=== PATIENT | male | born 1965 | race Two or more races ===

== ENCOUNTER 2019-10-31 11:26 | Outpatient (CLI) | payer MEDICAID, SELFPAY ==
--- NOTE | 2019-10-31 11:40 | XR_ITS ---
WS: [id number] THORACIC SPINE TECHNIQUE: AP and lateral views are performed. HISTORY: PAIN IN THORACIC SPINE COMPARISON: None available. Slight increase in thoracic kyphosis with endplate osteophytes. Pedicles are all identified. No osseo us destruction or fracture. Prior fusion hardware in the cervical spine. XR/XR thoracic spine 2V [id number] IMPRESSION: Mild thoracic spondylosis. No acute fracture.
== END 2019-10-31 11:27 | disposition home or self-care (01) ==
PROVIDERS: Family Provider Family Medicine; PCP Family Medicine; Visit Provider Nurse Practitioner Family
DX: M47.894 Other spondylosis, thoracic region (principal); M54.6 Pain in thoracic spine
CPT/HCPCS: 72070

== ENCOUNTER → 2019-11-21 08:50 | Outpatient (BNVA) | payer MEDICAID, SELFPAY | PROVIDERS: Family Provider Family Medicine; PCP Family Medicine; Visit Provider Social Worker | DX: F32.2 Major depressive disorder, single episode, severe without psychotic features (principal); F43.12 Post-traumatic stress disorder, chronic | CPT/HCPCS: 90834 ==

== ENCOUNTER → 2019-12-29 15:04 | Outpatient (BNVA) | payer MEDICAID, SELFPAY | PROVIDERS: Family Provider Family Medicine; PCP Family Medicine; Visit Provider Nurse Practitioner | DX: F41.1 Generalized anxiety disorder (principal); F32.2 Major depressive disorder, single episode, severe without psychotic features | CPT/HCPCS: 99213 ==

== ENCOUNTER → 2020-01-26 11:08 | Outpatient (BNVA) | payer MEDICAID, SELFPAY | PROVIDERS: Family Provider Family Medicine; PCP Family Medicine; Visit Provider Social Worker | DX: F43.12 Post-traumatic stress disorder, chronic (principal); F32.2 Major depressive disorder, single episode, severe without psychotic features | CPT/HCPCS: 90834 ==

== ENCOUNTER → 2020-02-09 08:29 | Outpatient (BNVA) | payer MEDICAID, SELFPAY | PROVIDERS: Family Provider Family Medicine; PCP Family Medicine; Visit Provider Social Worker | DX: F43.12 Post-traumatic stress disorder, chronic (principal); F32.2 Major depressive disorder, single episode, severe without psychotic features | CPT/HCPCS: 90832 ==

== ENCOUNTER 2020-03-20 11:24 | Emergency (ER) | payer MEDICAID, SELFPAY ==
[2020-03-20 11:43] VITALS: BP 162/91; PULSE 74; RESP 77; TEMP 36.8; O2SAT 96; BMI 30.4
--- NOTE | 2020-03-20 11:58 | XR_ITS ---
WS: [id number] XR chest 2V* [id number] REASON FOR EXAM: cough, fever FINDINGS: The heart and mediastinal interfaces are normal. The lung merchant are well aerated. No pneumonia, pleural effusion, pulmonary edema, or mass effect. There is mild scoliotic curve convex to the right. The hilum and apices are normal. There is postop changes in the lower anterior cervical spine with a plate in position. No osseous abnormalities. XR/XR chest 2V* [id number] IMPRESSION: Negative chest for active pathology.
--- NOTE | 2020-03-20 12:27 | ED_ITS ---
HPI - General Adult General: Chief complaint: General Medical Stated complaint: FEVER Time Seen by Provider: 03/20/20 11:52 Source: patient Mode of arrival: ambulatory Limitations: no limitations History of Present Illness: HPI narrative: 54-year-old male with a history of chronic pain syndrome presents to the emergency department of fever for the last 3 days. The fever has been as high as 101 degrees. He is also having increased myalgias and a mild cough. He has a bite on his back that he thinks may be a tick bite, the bite has been there for about a week and is getting more painful. He usually has lots of tick bites. He does travel weekly out of the area for work. MD complaint: fever Associated symptoms: Deny dyspnea, headache(s), nausea, rash, palpitations or vomiting Review of Systems General: Reports: 10 or more systems reviewed and unremarkable except in HPI and below Const: Reports: fever(s), chills and body aches Eyes: Denies: change in vision or blurry vision ENMT: Denies: throat pain, enlarged tonsils, odynophagia, hoarseness, mouth pain or swelling of lips/tongue Card: Denies: palpitations, irregular heart rhythm, edema or swelling of feet/ankles Resp: Reports: non-productive cough; Denies: dyspnea or productive cough GI: Denies: abdominal pain, nausea or vomiting : Denies: flank pain, dysuria, urinary frequency, urinary urgency or urinary hesitancy Musc: Reports: joint pain; Denies: neck pain, back pain or extremity swelling Skin/Breast: Denies: rash, pruritus or erythema Neuro: Denies: headache(s), numbness in extremities or weakness in extremities Endo: Denies: polyuria, polydipsia or tired all the time [facility] PFSH: Social History Smoking and tobacco status: never smoked Physical Exam Const: COMMON NORMALS: no acute distress, average body habitus, patient oriented x3, no limitations, healthy appearing, alert and well nourished HENMT: COMMON NORMALS: normocephalic, atraumatic and moist oral mucous membranes HEAD & SCALP: normocephalic and atraumatic Eye: COMMON NORMALS: Equal, round and reactive pupils present, EOMs intact bilaterally, conjunctivae normal and no scleral icterus CONJUNCTIVA: Yes conjunctivae normal PUPIL: Yes Equal, round and reactive pupils present Neck/C-Spine: COMMON NORMALS: full ROM, supple, no meningeal signs, no JVD and No carotid bruits Chest: COMMONS NORMALS: normal inspection of the chest and normal palpation of entire chest wall Resp: COMMON NORMALS: normal respiratory effort, No retractions, No use of accessory muscles, clear to auscultation bilaterally and percussion normal AUSCULTATION: clear to auscultation bilaterally PERCUSSION: percussion normal Cardio: COMMON NORMALS: no JVD, regular rate, regular rhythm, S1 normal heart sound present, S2 normal heart sound present, No gallops present (Cardio), No clicks present (Cardio), No murmurs present (Cardio), No rub (Cardio) and Peripheral pulses 2+ throughout RATE: regular rate RHYTHM: regular rhythm HEART SOUNDS: S1 normal heart sound present and S2 normal heart sound present PERIPHERAL PULSES: Peripheral pulses 2+ throughout GI: COMMON NORMALS: Normal to inspection, nondistended, normoactive bowel sounds present, Soft to palpation, non-tender, No hepatosplenomegaly present, no masses and no bruits PALPATION: Yes Soft to palpation and Yes No hepatosplenomegaly present : COMMON NORMALS: Yes no CVA tenderness BLADDER/KIDNEY EXAM: Yes no CVA tenderness Back/Pelvis: COMMON NORMALS: no CVA tenderness Extremity: COMMON NORMALS: normal to inspection, full ROM, capillary refill normal, no calf tenderness and no pedal edema Neuro: COMMON NORMALS: patient oriented x3 SENSORIUM/ORIENTATION: Yes alert MENINGEAL SIGNS: Yes no meningeal signs Skin: COMMON NORMALS: no rashes or lesions noted, no wounds, turgor normal, no jaundice, no petechiae and no mottling NARRATIVE SKIN EXAM: 5 cm area of erythema on his back, with a central area that appears to be a bite. The area is markedly tender, warm, with no fluctuance or drainage. GENERAL SKIN EXAM: no rashes or lesions noted and turgor normal Course Reevaluation(s): Reevaluation #1: Discussed his lab and imaging findings with him. Significant findings include elevated liver enzymes. Liver ultrasound unremarkable. Hepatitis panel negative. He possibly has a tickborne illness. We will treat him as such. We will also swab him for COVID-19. He voiced understanding and is in agreement with the plan. Time: 16:53 Vital Signs: Vital signs: Vital Signs Temperature 98.3 F 03/20/20 11:43 Pulse Rate 72 03/20/20 17:16 Respiratory Rate 16 03/20/20 17:16 Blood Pressure 135/97 03/20/20 17:16 Pulse Oximetry 96 03/20/20 17:16 MDM - General Adult MDM Narrative: Medical decision making narrative: 54-year-old male who presented with a fever, likely tick bites, and nonspecific symptoms of myalgias. Liver enzymes are elevated, hepatitis panel negative. He probably has a tick borne illness. He is also tested for COVID-19. He is discharged home on doxycycline. Medical Records: Attestation: I reviewed the patient's medical records. Lab Data: Attestation: I reviewed the patient's lab results. Labs: Lab Results 03/20/20 03/20/20 03/20/20 Range/Units 12:14 12:14 12:14 WBC 6.8 (4.0-10.0) 10^3/ uL RBC 5.03 (4.1-5.3) 10^6/u L Hgb 15.2 (11.7-16.6) g/dL Hct 44.9 (42.0-52.0) % MCV 89.3 (80-94) fL MCH 30.2 (28.0-34.0) pg MCHC 33.9 (30.0-36.0) g/dL RDW 13.9 (12.1-15.1) % Plt Count 224 (130-400) 10^3/c mm MPV 10.4 (7.4-10.4) fL Neut % (Auto) 77.0 % Lymph % (Auto) 10.3 % Bradley % (Auto) 6.3 % Eos % (Auto) 6.0 % Baso % (Auto) 0.1 % Neut # (Auto) 5.2 (1.8-7.7) 10^3/u L Lymph # (Auto) 0.7 L (0.8-4.8) 10^3/u L Bradley # (Auto) 0.4 (0.2-0.9) 10^3/u L Eos # (Auto) 0.4 (0.0-0.8) 10^3/u L Baso # (Auto) 0.0 (0.0-0.1) 10^3/u L Nucleated RBC % (a uto) 0 % Nucleated RBCs # 0.0 /100WBC Sodium 141 (136-145) mmol/L Potassium 4.4 (3.5-5.1) mmol/L Chloride 104 (98-107) mmol/L Carbon Dioxide 23 (22-29) mmol/L Anion Gap 18.4 (5-19) BUN 13 (6-20) mg/dL Creatinine 0.9 (0.7-1.2) mg/dL GFR Calculation 88.6 L (90-130) mL/min Glucose 117 H (65-115) mg/dL Calculated Osmolal ity 289 (285-295) mOsm/k g Lactate 1.3 (0.5-2.2) mmol/L Calcium 10.0 (8.5-10.5) mg/dL Total Bilirubin 0.6 (0.15-1.2) mg/dL AST 441 H (0-40) U/L ALT 712 H (0-41) U/L Alkaline Phosphata se 154 H (40-130) IU/L C-Reactive Protein 50.5 H (0.0-4.9) mg/L Total Protein 6.9 (6.6-8.7) g/dL Albumin 3.9 (3.5-5.2) g/dL Globulin 3.0 (1.3-4.6) g/dL Procalcitonin 0.29 (0-0.5) ng/mL Hepatitis A IgM Ab (Nonreactive) Hep Bs Antigen (Nonreactive) Hep Bs Antibody (0-8.5) Hep B Core Total A b (Nonreactive) Hepatitis C Antibo dy (Nonreactive) 03/20/20 Range/Units 12:14 WBC (4.0-10.0) 10^3/ uL RBC (4.1-5.3) 10^6/u L Hgb (11.7-16.6) g/dL Hct (42.0-52.0) % MCV (80-94) fL MCH (28.0-34.0) pg MCHC (30.0-36.0) g/dL RDW (12.1-15.1) % Plt Count (130-400) 10^3/c mm MPV (7.4-10.4) fL Neut % (Auto) % Lymph % (Auto) % Bradley % (Auto) % Eos % (Auto) % Baso % (Auto) % Neut # (Auto) (1.8-7.7) 10^3/u L Lymph # (Auto) (0.8-4.8) 10^3/u L Bradley # (Auto) (0.2-0.9) 10^3/u L Eos # (Auto) (0.0-0.8) 10^3/u L Baso # (Auto) (0.0-0.1) 10^3/u L Nucleated RBC % (a uto) % Nucleated RBCs # /100WBC Sodium (136-145) mmol/L Potassium (3.5-5.1) mmol/L Chloride (98-107) mmol/L Carbon Dioxide (22-29) mmol/L Anion Gap (5-19) BUN (6-20) mg/dL Creatinine (0.7-1.2) mg/dL GFR Calculation (90-130) mL/min Glucose (65-115) mg/dL Calculated Osmolal ity (285-295) mOsm/k g Lactate (0.5-2.2) mmol/L Calcium (8.5-10.5) mg/dL Total Bilirubin (0.15-1.2) mg/dL AST (0-40) U/L ALT (0-41) U/L Alkaline Phosphata se (40-130) IU/L C-Reactive Protein (0.0-4.9) mg/L Total Protein (6.6-8.7) g/dL Albumin (3.5-5.2) g/dL Globulin (1.3-4.6) g/dL Procalcitonin (0-0.5) ng/mL Hepatitis A IgM Ab Non-reactive (Nonreactive) Hep Bs Antigen Non-reactive (Nonreactive) Hep Bs Antibody 3.5 (0-8.5) Hep B Core Total A b Non-reactive (Nonreactive) Hepatitis C Antibo dy Non-reactive (Nonreactive) Imaging Data^: CXR: Radiologist's impression: [address] [place] [address] XRay Report Signed Patient: Wilner Hollingsworth #: [id number] : 1965Acct#:[id number] Age/Sex: 54 / MADM Date: 03/20/20 Loc: ERRoom/Bed: Attending Dr: Ordering Provider/Ordering MD: Funmilayo Saul MD, [facility] [place] of Service: 03/20/20 Procedure(s): XR chest 2V* [id number] Accession Number(s): [id number] Report Number: [id number] WS: [id number] XR chest 2V* [id number] REASON FOR EXAM: cough, fever FINDINGS: The heart and mediastinal interfaces are normal. The lung merchant are well aerated. No pneumonia, pleural effusion, pulmonary edema, or mass effect. There is mild scoliotic curve convex to the right. The hilum and apices are normal. There is postop changes in the lower anterior cervical spine with a plate in position. No osseous abnormalities. XR/XR chest 2V* [id number] IMPRESSION: Negative chest for active pathology. Dictated By:Roberto Rob DO Signed By:Roberto Rob DOSigned Date/Time:03/20/20 1248 DD/ 1247 US: Radiologist's impression: [address] [place] [address] Ultrasound Report Signed Patient: Wilner Hollingsworth #: [id number] : 1965Acct#:[id number] Age/Sex: 54 / MADM Date: 03/20/20 Loc: ERRoom/Bed: Attending Dr: Ordering Provider/Ordering MD: Funmilayo Saul MD, [facility] [place] Date of Service: 03/20/20 Procedure(s): US liver 10815 Accession Number(s): [id number] Report Number: [id number] WS: [id number] ABDOMINAL ULTRASOUND LIMITED REASON FOR VISIT: elevated liver enzymes TECHNIQUE: Grayscale and Doppler ultrasound examination of the abdomen. FINDINGS: Pancreas: Normal Abdominal aorta and IVC: Normal Liver: Liver measures 17.2 cm in length. Coarse reflective pattern throughout the liver. Hepatopedal portal circulation. Gallbladder: Gallbladder wall thickness measures 0.2 mm. No stones. Right kidney: Right kidney measures 13.2 cm x 5.5 cm x 5.2 cm. Right kidney cortex measures 1.6 cm. A prominent cyst in the right kidney measured 4.68 x 4.32 x 4.64 cm. US/US liver [id number] IMPRESSION: Fatty infiltration of the liver Benign cyst of the right kidney. Dictated By:Roberto Rob DO Signed By:Roberto Rob DOSigned Date/Time:03/20/20 1450 DD/ 1447 Discharge Plan Discharge Patient Disposition: Home, Self-Care Clinical Impression: At high risk for tick borne illness Condition: Stable Prescriptions: New doxycycline hyclate 100 mg capsule 100 mg PO BID 7 Days Qty: 14 RF: 0 Continued gabapentin 300 mg capsule 300 mg PO TID RF: 0 tramadol 50 mg tablet 100 mg PO TID PRNRF: 0 enalapril maleate 5 mg tablet 5 mg PO .QHS RF: 0 hydroxyzine HCl 25 mg tablet 25 mg PO BID PRNRF: 0 duloxetine [Cymbalta] 60 mg capsule,delayed release(DR/EC) 120 mg PO DAILY Qty: 60 RF: 2 trazodone 50 mg tablet 50 mg PO .COMPLEX Qty: 60 RF: 2 Discharge Orders: Discharge Order (Routine); Ordered 03/20/20 Ordered By: Funmilayo Saul Patient Instructions: Tick Bite (ED) Activity Restrictions/Additional Instructions: Return for any new or worsening symptoms. Follow up with your primary care provider within one week You will be contacted with the result of the tick borne illness and also the COVID-19 tests. Discharge Date/Time: 03/20/20 17:16 Coding Level of Care Code ED Certified Ophthalmic Technologist for Kevin Fwmary Exam Comprehensive
[2020-03-20 12:39] LABS: Basophils % 0.1 %; Eosinophils # 0.4 10^3/uL (0.0-0.8); Hematocrit 44.9 % (42.0-52.0); Hemoglobin 15.2 g/dL (11.7-16.6); Lactate (Lactic Acid level) 1.3 mmol/L (0.5-2.2); Lymphocytes # 0.7 10^3/uL (0.8-4.8); Lymphocytes % 10.3 %; Mean Corpuscular HGB Conc 33.9 g/dL (30.0-36.0); Mean Corpuscular Hemoglobin 30.2 pg (28.0-34.0); Mean Corpuscular Volume 89.3 fL (80-94); Mean Platelet Volume 10.4 fL (7.4-10.4); Monocytes # 0.4 10^3/uL (0.2-0.9); Monocytes % 6.3 %; Neutrophils # 5.2 10^3/uL (1.8-7.7); Nucleated Red Blood Cells % 0 %; Platelet Count 224 10^3/cmm (130-400); Red Blood Count 5.03 10^6/uL (4.1-5.3); Red Cell Distribution Width 13.9 % (12.1-15.1); White Blood Count 6.8 10^3/uL (4.0-10.0)
[2020-03-20 12:51] LABS: Procalcitonin 0.29 ng/mL (0-0.5)
[2020-03-20 12:56] VITALS: BP 166/83; PULSE 74; RESP 16; O2SAT 96
[2020-03-20 13:06] LABS: Albumin Level 3.9 g/dL (3.5-5.2); Alkaline Phosphatase 154 IU/L (40-130); Anion Gap 18.4 (5-19); Aspartate Amino Transferase 441 U/L (0-40); Blood Urea Nitrogen 13 mg/dL (6-20); C Reactive Protein 50.5 mg/L (0.0-4.9); Carbon Dioxide 23 mmol/L (22-29); Chloride 104 mmol/L (98-107); Glomerular Filtration Rate 88.6 mL/min (90-130); Glucose 117 mg/dL (65-115); Osmolality Calculated 289 mOsm/kg (285-295); Potassium 4.4 mmol/L (3.5-5.1); Sodium 141 mmol/L (136-145); Total Bilirubin 0.6 mg/dL (0.15-1.2); Total Protein 6.9 g/dL (6.6-8.7)
[2020-03-20 13:17] LABS: Alanine Aminotransferase 712 U/L (0-41)
--- NOTE | 2020-03-20 13:45 | US_ITS ---
WS: [id number] ABDOMINAL ULTRASOUND LIMITED REASON FOR VISIT: elevated liver enzymes TECHNIQUE: Grayscale and Doppler ultrasound examination of the abdomen. FINDINGS: Pancreas: Normal Abdominal aorta and IVC: Normal Liver: Liver measures 17.2 cm in length. Coarse reflective pattern throughout the liver. Hepatopedal portal circulation. Gallbladder: Gallbladder wall thickness measures 0.2 mm. No stones. Right kidney: Right kidney measures 13.2 cm x 5.5 cm x 5.2 cm. Right kidney cortex measures 1.6 cm. A prominent cyst in the right kidney measured 4.68 x 4.32 x 4.64 cm. US/US liver [id number] IMPRESSION: Fatty infiltration of the liver Benign cyst of the right kidney.
[2020-03-20 14:36] VITALS: BP 145/110; PULSE 61; RESP 18; O2SAT 95
[2020-03-20 14:46] LABS: Hepatitis A Antibody IgM Non-Reactive (Nonreactive); Hepatitis B Core AB, Total Non-Reactive (Nonreactive); Hepatitis B Surface AB 3.5 (0-8.5); Hepatitis B Surface Antigen Non-Reactive (Nonreactive); Hepatitis C Virus Antibody Non-Reactive (Nonreactive)
[2020-03-20 15:08] VITALS: BP 158/107; PULSE 73; RESP 16; O2SAT 98
[2020-03-20 17:16] VITALS: BP 135/97; PULSE 72; RESP 16; O2SAT 96
[2020-03-21 15:40] LABS: Lyme AB Screen <0.90 index
[2020-03-22 10:22] LABS: Quest SARS-CoV-2 RNA NOT DETECTED (NOT DETECTED)
[2020-03-23 17:15] LABS: RMSF IGG NOT DETECTED; RMSF IGM NOT DETECTED
[2020-03-23 22:01] LABS: E. Chaffeensis AB IGG <1:64; E. Chaffeensis AB IGM <1:20
== END 2020-03-20 17:16 | disposition home or self-care (01) ==
PROVIDERS: Emergency Provider Family Medicine
DX: R50.9 Fever, unspecified (principal)
CPT/HCPCS: 12345; 36415; 71046; 76705; 80053; 83605; 84145; 85025; 86140; 86705; 86706; 86709; 86803; 87340; 87635; 99282; 99283

== ENCOUNTER → 2020-03-27 08:16 | Outpatient (BNVA) | payer MEDICAID, SELFPAY | PROVIDERS: Visit Provider Social Worker | DX: F43.12 Post-traumatic stress disorder, chronic (principal); F32.2 Major depressive disorder, single episode, severe without psychotic features; F41.1 Generalized anxiety disorder | CPT/HCPCS: 90834 ==

== ENCOUNTER → 2020-04-24 07:44 | Outpatient (BNVA) | payer MEDICAID, SELFPAY | PROVIDERS: Visit Provider Nurse Practitioner | DX: F41.1 Generalized anxiety disorder (principal); F32.0 Major depressive disorder, single episode, mild; F90.0 Attention-deficit hyperactivity disorder, predominantly inattentive type | CPT/HCPCS: 99214 ==

== ENCOUNTER → 2020-06-08 09:20 | Outpatient (BNVA) | payer MEDICAID, SELFPAY | PROVIDERS: Visit Provider Nurse Practitioner | DX: F32.0 Major depressive disorder, single episode, mild (principal); F41.1 Generalized anxiety disorder | CPT/HCPCS: 99213 ==

== ENCOUNTER 2020-07-13 15:26 | Outpatient (CLI) | payer MEDICAID, SELFPAY ==
--- NOTE | 2020-07-13 | USCV_ITS ---
Wilenr Hollingsworth Age: 55 Gender: M : 1965 Exam Date: 07/13/2020 15:42 Ordering Phys: Lisa Samaniego NP Technologist: Henrietta Sun Exam Location: [facility] [place] Indication: CHEST PAIN BP: / HR: 67 Rhythm: Sinus Technical Quality: Adequate MEASUREMENTS (Male / Female) Normal Values 2D ECHO LV Diastolic Diameter PLAX 3.9 cm 4.2 - 5.9 / 3.9 - 5.3 cm LV Systolic Diameter PLAX 2.6 cm LV Chamber Size 4.1 cm IVS Diastolic Thickness 1.2 cm 0.6 - 1.0 / 0.6 - 0.9 cm IVS Systolic Thickness 1.6 cm LVPW Diastolic Thickness 1.6 cm 0.6 - 1.0 / 0.6 - 0.9 cm LVPW Systolic Thickness 1.6 cm RV Chamber Size 2.6 cm LVOT Diameter 2.1 cm LV Ejection Fraction 2D Teich 60.4 % LV Ejection Fraction MOD 2C 71.3 % LV Ejection Fraction 2C AL 72.1 % LA Diameter 3.9 cm LA Width 3.0 cm LA Height 4.5 cm RA Width 2.8 cm RA Height 4.2 cm Aorta at Sinotubular Diameter 3.4 cm M-MODE LV Diastolic Diameter MM 4.7 cm 4.2 - 5.9 / 3.9 - 5.3 cm LV Systolic Diameter MM 3.1 cm LV Ejection Fraction MM Teich 64.8 % IVS Diastolic Thickness MM 1.0 cm 0.6 - 1.0 / 0.6 - 0.9 cm IVS Systolic Thickness MM 1.2 cm LVPW Diastolic Thickness MM 1.2 cm 0.6 - 1.0 / 0.6 - 0.9 cm LVPW Systolic Thickness MM 3.0 cm RV Diastolic Diameter MM 0.9 cm Aortic Annulus Diameter 3.9 cm LA Ao Ratio MM 1.0 MV E Point Septal Separation 0.1 cm DOPPLER AV Peak Velocity 163.0 cm/s LVOT Peak Velocity 110.0 cm/s AV Area Cont Eq vti 2.5 cm squared AV Area Cont Eq pk 2.3 cm squared MV Area PHT 4.9 cm squared Mitral E to A Ratio 1.0 MV E' Velocity 10.0 cm/s Mitral E to MV E' Ratio 7.9 Mitral E to LV E' Lateral Ratio 6.6 Mitral E to LV E' Septal Ratio 10.1 TR Peak Velocity 170.5 cm/s TR Peak Gradient 11.6 mmHg TR Mean Velocity 108.6 cm/s TR Mean Gradient 6.1 mmHg TR Velocity Time Integral 37.6 cm TV Peak E Velocity 69.0 cm/s Right Atrial Pressure 3.0 mmHg Pulmonary Artery Systolic Pressu 14.6 mmHg PV Peak Velocity 52.0 cm/s RV Acceleration Time 0.2 s RV Ejection Time 0.3 s RV AcT/ET 0.6 FINDINGS Left Ventricle Normal left ventricular size and systolic function, EF 70 %. No regional wall motion abnormalities. Grade I/IV diastolic dysfunction (abnormal relaxation filling pattern), normal to mildly elevated filling pressures. Right Ventricle The right ventricle is normal in size and function. Right Atrium The right atrium is normal in size. Left Atrium The left atrium is normal in size. Mitral Valve No gross abnormalities noted Aortic Valve No gross abnormalities noted Tricuspid Valve Trace tricuspid valve regurgitation. Pulmonic Valve No gross abnormalities noted Pericardium Normal pericardium without effusion. Aorta Normal ascending aorta dimension. CONCLUSIONS Normal left ventricular size and systolic function, EF 70 %. No regional wall motion abnormalities. Grade I/IV diastolic dysfunction (abnormal relaxation filling pattern), normal to mildly elevated filling pressures. Trace tricuspid valve regurgitation. There is no pericardial effusion. There are no intracardiac masses. Pulmonary artery peak systolic pressure was within normal limits No previous study is available for comparison. Dr Zelalem Sorto MD FAC (Electronically Signed) Final Date: 14 July 2020 09:10 S
== END 2020-07-13 15:27 | disposition home or self-care (01) ==
LOC: US 15:27
PROVIDERS: PCP Nurse Practitioner Family; Visit Provider Nurse Practitioner Family
DX: R07.9 Chest pain, unspecified (principal)
CPT/HCPCS: 93306

== ENCOUNTER → 2020-07-25 11:28 | Outpatient (BNVA) | payer MEDICAID, SELFPAY | PROVIDERS: PCP Nurse Practitioner Family; Visit Provider Surgery | DX: Z11.59 Encounter for screening for other viral diseases (principal) | CPT/HCPCS: 87635 ==

== ENCOUNTER 2020-07-30 06:22 | Day surgery (SDC) | payer MEDICAID, SELFPAY ==
[2020-07-24 13:10] VITALS: BMI 28.8
[2020-07-30 06:39] VITALS: BP 108/85; PULSE 75; RESP 18; TEMP 36.6; O2SAT 96
[2020-07-30] MEDS: sodium chloride 0.9% 1,000 ML 30 ML IV (06:50)
--- NOTE | 2020-07-30 06:54 | ANES.PREANE2 ---
Pre-Anesthetic Assessment Pre-Anesthetic Assessment: Height/Weight: Height 1.73 m Weight 86.183 kg Temp Pulse Resp BP Pulse Ox 97.8 F 75 18 108/85 96 07/30/20 06:39 07/30/20 06:39 07/30/20 06:39 07/30/20 06:39 07/30/20 06:39 Preop Diagnosis: Dysphagia Proposed Procedure: Operation Date: 07/30/20 07:30 Proposed Procedures p EGD Dilation W/ Balloon 48345 K21.9(Not Applicable) - Kenyon Bro MD Last intake: Intake Last Liquid Date 07/30/20 Last Liquid Time 18:00 Last Solid Date 07/29/20 Last Solid Time 19:00 Social: Social History: No alcohol and No tobacco Exam: Pre-Anes Outpt Exam: alert, oriented x 3, clear to auscultation bilaterally and regular rate & rhythm Airway: Submandibular: WNL Cervical ROM: Other (VERY LIMITED ACDF) MP: 2 History/ROS: No significant history except as noted Pulmonary: Pulmonary: None reported CV/HEM: CV/HEM: HTN : : None reported GI: GI: GERD and PUD Musc/skel: Musc/skel: Lower Back Pain and OA/DJD (cervical fusion C4-C7 DJD) Neuropsych: Neuropsych: Anxiety Anesthetic Plan: ASA status: 2 Anesthesia: Anesthesia Evaluation and MAC Other: PREFERS NO BLOOD PRODUCTS Risk of > 500 ml blood loss (7ml/kg in children): No Meds/Allergies Current Medications: Current Medications Generic Name Dose Route Start Last Admin Trade Name Freq PRN Reason Stop Dose Admin Sodium Chloride 1,000 mls @ 30 ml s/hr 07/30/20 06:45 07/30/20 06:50 Sodium Chloride 0.9% IV 30 mls/hr .Q24H JANEL Administration PFSH Anesthesia PFSH: Medical History Chronic GERD Generalized anxiety disorder Major depressive disorder, single episode, mild Surgical History H/O colonoscopy 2020 H/O neck surgery History of prostate surgery Family History Father Cancer liver Family/Other Cancer uncle-lung Other CAD (coronary artery disease) Denies family history of Anesthesia complication Bleeding disorder Social History Smoking and tobacco status: never smoked Alcohol intake: never Household members: spouse Marital status: Current occupational status: unemployed History of recent travel: No Data Anesthesia Cardiac Studies: No Data to Display
--- NOTE | 2020-07-30 07:03 | W.PM.OPSUD ---
Surgery/Procedure H&P Update DATE OF PROCEDURE: July 30, 2020 DATE H&P PERFORMED: 07/20/20 H&P UPDATE INFORMATION: I have reviewed H&P completed within last 30 days, I have examined patient prior to procedure and No changes to prior documentation PREOP DIAGNOSIS: Dysphagia PLANNED PROCEDURE: Operation Date: 07/30/20 07:30 Proposed Procedures p EGD Dilation W/ Balloon 40480 K21.9(Not Applicable) - Kenyon Bro MD
[2020-07-30 07:49] VITALS: BP 120/92; PULSE 67; RESP 16; TEMP 36.2; O2SAT 96
[2020-07-30 08:03] VITALS: BP 132/95; PULSE 72; RESP 18; O2SAT 97
--- NOTE | 2020-07-30 08:30 | ANE.PACU2 ---
Inpatient post-anesthesia follow up: Airway intact: Yes Vital signs: Temperature 97.2 F Pulse Rate 72 Respiratory Rate 18 Blood Pressure 132/95 Pulse Oximetry 97 Oxygen Delivery Me thod Room Air Oxygen Flow Rate 3 Fraction of Inspir ed Oxygen Hydration adequate: Yes Nausea and vomiting: No Pain level: 1 Mental status: Baseline
== END 2020-07-30 08:29 | disposition home or self-care (01) ==
PROVIDERS: PCP Nurse Practitioner Family; Visit Provider Surgery
DX: R13.10 Dysphagia, unspecified (principal); F41.9 Anxiety disorder, unspecified; F32.9 Major depressive disorder, single episode, unspecified; K21.9 Gastro-esophageal reflux disease without esophagitis; I10 Essential (primary) hypertension; Z87.11 Personal history of peptic ulcer disease; M19.90 Unspecified osteoarthritis, unspecified site
CPT/HCPCS: 12345; 43235; J2704; J7030

== ENCOUNTER → 2020-08-29 07:55 | Outpatient (BNVA) | payer MEDICAID, SELFPAY | PROVIDERS: PCP Nurse Practitioner Family; Visit Provider Nurse Practitioner | DX: F32.0 Major depressive disorder, single episode, mild (principal); F41.1 Generalized anxiety disorder | CPT/HCPCS: 99214 ==

== ENCOUNTER → 2020-10-03 08:27 | Outpatient (BNVA) | payer MEDICAID, SELFPAY | PROVIDERS: PCP Nurse Practitioner Family; Visit Provider Counselor Professional | DX: F43.12 Post-traumatic stress disorder, chronic (principal); F32.2 Major depressive disorder, single episode, severe without psychotic features; F41.1 Generalized anxiety disorder | CPT/HCPCS: 90834 ==

== ENCOUNTER → 2020-10-26 09:14 | Outpatient (BNVA) | payer MEDICAID, SELFPAY | PROVIDERS: PCP Nurse Practitioner Family; Visit Provider Counselor Professional | DX: F43.12 Post-traumatic stress disorder, chronic (principal); F33.2 Major depressive disorder, recurrent severe without psychotic features; F41.1 Generalized anxiety disorder | CPT/HCPCS: 90834 ==

== ENCOUNTER → 2020-10-29 07:42 | Outpatient (BNVA) | payer MEDICAID, SELFPAY | PROVIDERS: PCP Nurse Practitioner Family; Visit Provider Nurse Practitioner | DX: F32.0 Major depressive disorder, single episode, mild (principal); F41.1 Generalized anxiety disorder | CPT/HCPCS: 99214 ==

== ENCOUNTER → 2020-11-14 08:36 | Outpatient (BNVA) | payer MEDICAID, SELFPAY | PROVIDERS: PCP Nurse Practitioner Family; Visit Provider Counselor Professional | DX: F43.12 Post-traumatic stress disorder, chronic (principal); F32.2 Major depressive disorder, single episode, severe without psychotic features; F41.1 Generalized anxiety disorder | CPT/HCPCS: 90834 ==

== ENCOUNTER → 2020-12-13 08:13 | Outpatient (BNVA) | payer MEDICAID, SELFPAY | PROVIDERS: PCP Nurse Practitioner Family; Visit Provider Counselor Professional | DX: F43.12 Post-traumatic stress disorder, chronic (principal); F32.2 Major depressive disorder, single episode, severe without psychotic features; F41.1 Generalized anxiety disorder; F40.11 Social phobia, generalized | CPT/HCPCS: 90834 ==

== ENCOUNTER → 2020-12-27 07:55 | Outpatient (BNVA) | payer MEDICAID, SELFPAY | PROVIDERS: PCP Nurse Practitioner Family; Visit Provider Counselor Professional | DX: F32.2 Major depressive disorder, single episode, severe without psychotic features (principal); F41.1 Generalized anxiety disorder; F40.10 Social phobia, unspecified; F43.12 Post-traumatic stress disorder, chronic | CPT/HCPCS: 90834 ==

== ENCOUNTER → 2021-02-07 09:41 | Outpatient (BNVA) | payer MEDICAID, SELFPAY | PROVIDERS: PCP Nurse Practitioner Family; Visit Provider Counselor Professional | DX: F43.12 Post-traumatic stress disorder, chronic (principal); F41.1 Generalized anxiety disorder; F40.10 Social phobia, unspecified | CPT/HCPCS: 90834 ==

== ENCOUNTER → 2021-03-28 08:02 | Outpatient (BNVA) | payer MEDICAID, SELFPAY | PROVIDERS: PCP Nurse Practitioner Family; Visit Provider Counselor Professional | DX: F43.12 Post-traumatic stress disorder, chronic (principal); F41.1 Generalized anxiety disorder; F40.10 Social phobia, unspecified | CPT/HCPCS: 90834 ==

== ENCOUNTER → 2021-04-05 14:37 | Outpatient (BNVA) | payer MEDICAID, SELFPAY | PROVIDERS: PCP Nurse Practitioner Family; Visit Provider Counselor Professional | DX: F43.12 Post-traumatic stress disorder, chronic (principal); F41.1 Generalized anxiety disorder; F40.10 Social phobia, unspecified | CPT/HCPCS: 90834 ==

== ENCOUNTER → 2021-05-03 14:07 | Outpatient (BNVA) | payer MEDICAID, SELFPAY | PROVIDERS: PCP Nurse Practitioner Family; Visit Provider Counselor Professional | DX: F43.12 Post-traumatic stress disorder, chronic (principal); F41.1 Generalized anxiety disorder; F40.10 Social phobia, unspecified | CPT/HCPCS: 90834 ==

== ENCOUNTER → 2021-06-19 08:43 | Outpatient (BNVA) | payer MEDICAID, SELFPAY | PROVIDERS: PCP Nurse Practitioner Family; Visit Provider Nurse Practitioner | DX: F32.0 Major depressive disorder, single episode, mild (principal); F41.1 Generalized anxiety disorder | CPT/HCPCS: 99214 ==

== ENCOUNTER → 2021-08-02 09:37 | Outpatient (BNVA) | payer MEDICAID, SELFPAY | PROVIDERS: PCP Nurse Practitioner Family; Visit Provider Counselor Professional | DX: F43.12 Post-traumatic stress disorder, chronic (principal); F41.1 Generalized anxiety disorder; F40.10 Social phobia, unspecified; F60.3 Borderline personality disorder | CPT/HCPCS: 90834 ==

== ENCOUNTER 2021-08-15 | Outpatient (CLI) | payer MEDICAID, SELFPAY | END 2021-08-15 00:01 | disposition home or self-care (01) | LOC: RAD 04-15 08:59 | PROVIDERS: PCP Nurse Practitioner Family; Visit Provider Nurse Practitioner Family | DX: F43.12 Post-traumatic stress disorder, chronic (principal); F41.1 Generalized anxiety disorder; F40.10 Social phobia, unspecified | CPT/HCPCS: 90834 ==

== ENCOUNTER → 2021-08-29 09:38 | Outpatient (BNVA) | payer MEDICAID, SELFPAY | PROVIDERS: PCP Nurse Practitioner Family; Visit Provider Counselor Professional | DX: F43.12 Post-traumatic stress disorder, chronic (principal); F41.1 Generalized anxiety disorder; F40.10 Social phobia, unspecified | CPT/HCPCS: 90834 ==

== ENCOUNTER → 2021-09-06 09:57 | Outpatient (BNVA) | payer MEDICAID, SELFPAY | PROVIDERS: PCP Nurse Practitioner Family; Visit Provider Counselor Professional | DX: F43.12 Post-traumatic stress disorder, chronic (principal); F41.1 Generalized anxiety disorder; F40.10 Social phobia, unspecified | CPT/HCPCS: 90834 ==

== ENCOUNTER → 2021-09-18 09:19 | Outpatient (BNVA) | payer MEDICAID, SELFPAY | PROVIDERS: PCP Nurse Practitioner Family; Visit Provider Nurse Practitioner | DX: F41.1 Generalized anxiety disorder (principal); F32.0 Major depressive disorder, single episode, mild | CPT/HCPCS: 99214 ==

== ENCOUNTER → 2021-10-24 08:30 | Outpatient (BNVA) | payer MEDICAID, SELFPAY | PROVIDERS: PCP Nurse Practitioner Family; Visit Provider Counselor Professional | DX: F43.12 Post-traumatic stress disorder, chronic (principal); F41.1 Generalized anxiety disorder; F40.10 Social phobia, unspecified | CPT/HCPCS: 90834 ==

== ENCOUNTER 2021-10-31 16:39 | Emergency (ER) | payer MEDICAID, SELFPAY ==
[2021-10-31 16:47] VITALS: BP 132/86; PULSE 79; RESP 16; TEMP 36.7; O2SAT 98; BMI 30.4
--- NOTE | 2021-10-31 17:11 | W.ED.BACK ---
HPI - Back Pain/Injury General: Chief Complaint: Back Pain/Injury Stated Complaint: severe back pains prison down Time Seen by Provider: 10/31/21 17:10 Source: patient Mode of arrival: ambulatory Limitations: no limitations History of Present Illness: HPI Narrative: Patient is a 56-year-old male who presents to ED today with a complaint of back pain that began yesterday. Patient tells me earlier that day he had been lifting heavy loads of trash and states he was getting down from his truck when he felt something shift in his back and pain began gradually following that. He does state he has a history of back pains but this feels slightly different. He is reporting midline back pain to his lower thoracic/upper lumbar region. He does not have any flank pain. No urinary symptoms. He states pain seems to be worse with certain movements and positions. Denies radicular symptoms into lower extremity. MD elicited complaint: back pain Pertinent past history: prior back pain Onset (ago): hour(s) Timing: constant Severity: severe Pain scale (0-10): 10 Quality: sharp Location: lumbar spine and thoracic spine Radiation: none Exacerbating factors: movement, walking, coughing/sneezing and lifting Relieving factors: none Associated symptoms: Reports no associated symptoms; Deny abdominal pain, chills, dysuria, fatigue, fever(s), hematuria, nausea, urinary urgency or vomiting Review of Systems Const: Denies: fever(s), chills, body aches, fatigue or malaise Card: Denies: chest pain Resp: Denies: dyspnea GI: Denies: abdominal pain, nausea or vomiting : Denies: flank pain, difficulty urinating, dysuria, urinary urgency or hematuria Musc: Reports: back pain; Denies: neck pain, extremity pain, joint pain or joint swelling Skin/Breast: Denies: rash Neuro: Denies: headache(s), numbness in extremities, weakness in extremities, sensory changes or dizziness PFS ED PFSH: Medical History (Updated 10/31/21 @ 18:13 by JESUS ALBERTO Bruce) Chronic GERD Generalized anxiety disorder Major depressive disorder, single episode, mild Psychiatric care Surgical History (Updated 07/30/20 @ 07:52 by Kenyon Bro MD) H/O colonoscopy 2020 H/O esophagogastroduodenoscopy (07/30/20) H/O neck surgery History of prostate surgery Family History Father Cancer liver Family/Other Cancer uncle-lung Other CAD (coronary artery disease) Denies family history of Anesthesia complication Bleeding disorder Social History Smoking and tobacco status: never smoked Alcohol intake: never Household members: spouse Marital status: Current occupational status: unemployed History of recent travel: No Physical Exam Const: COMMON NORMALS: patient oriented x3, no limitations and alert GENERAL APPEARANCE: cooperative and in distress (appears uncomfortable secondary to pain) NUTRITIONAL APPEARANCE: overweight ORIENTATION/CONSCIOUSNESS: Yes awake, Yes oriented to person, Yes oriented to place and Yes oriented to time HENMT: COMMON NORMALS: normocephalic and atraumatic HEAD & SCALP: normocephalic and atraumatic Neck/C-Spine: COMMON NORMALS: full ROM and no lymphadenopathy GENERAL: Yes normal visual inspection CERVICAL SPINE: Yes cervical ROM normal and No Cervical spine tenderness Chest: COMMONS NORMALS: normal inspection of the chest and normal palpation of entire chest wall Resp: COMMON NORMALS: normal respiratory effort and clear to auscultation bilaterally AUSCULTATION: clear to auscultation bilaterally Cardio: COMMON NORMALS: regular rate and regular rhythm RATE: regular rate RHYTHM: regular rhythm GI: COMMON NORMALS: Normal to inspection, nondistended, normoactive bowel sounds present, Soft to palpation, non-tender, No hepatosplenomegaly present and no masses PALPATION: Yes Soft to palpation and Yes No hepatosplenomegaly present : COMMON NORMALS: Yes no CVA tenderness BLADDER/KIDNEY EXAM: Yes no CVA tenderness Back/Pelvis: COMMON NORMALS: no CVA tenderness BACK IMAGE (MALE): 1. TTP; palpation reproduces pts pain Extremity: COMMON NORMALS: normal to inspection and full ROM GENERAL: Yes normal exam except as noted Neuro: COMMON NORMALS: patient oriented x3, moves all extremities, no focal motor deficits, no sensory deficits noted and gait normal SENSORIUM/ORIENTATION: Yes alert, Yes oriented to person, Yes oriented to place and Yes oriented to time Skin: COMMON NORMALS: no rashes or lesions noted GENERAL SKIN EXAM: no rashes or lesions noted Course Vital Signs: Vital signs: Vital Signs Temperature 98.0 F 10/31/21 16:47 Pulse Rate 79 10/31/21 16:47 Respiratory Rate 18 10/31/21 17:26 Blood Pressure 132/86 10/31/21 16:47 Pulse Oximetry 100 10/31/21 17:26 MDM - Back Pain/Injury MDM Narrative: Medical decision making narrative: Patient's history is consistent with musculoskeletal muscle pathology. Pain was reproducible on palpation of his upper lumbar/lower thoracic spine. He has no neurological complaints. No pain into chest/abdomen. Pain down from a 10/10 to a 3/10 with IM medications here. I don't feel emergent imaging is necessary at this time. Recommend he follow up with PCP in 3-5 days if pain persists. Strict return to ED precautions verbally given to patient/. Discharge Plan Discharge Patient Disposition: Home Clinical Impression: Musculoskeletal back pain Condition: Stable Prescriptions: New hydrocodone-acetaminophen 5-325 mg tablet 1 tab PO Q4H PRN (Reason: pain) Qty: 15 RF: 0 methylprednisolone [Medrol (Alexis)] 4 mg tablets,dose pack See Rx Instructions .ROUTE .COMPLEX Qty: 21 RF: 0 cyclobenzaprine 10 mg tablet 10 mg PO TID Qty: 14 RF: 0 ibuprofen 800 mg tablet 800 mg PO Q8H PRN (Reason: pain) Qty: 20 RF: 0 No Action gabapentin 300 mg capsule 300 mg PO TID RF: 0 tramadol 50 mg tablet 100 mg PO TID PRN (Reason: Pain) RF: 0 enalapril maleate 5 mg tablet 5 mg PO .QHS RF: 0 duloxetine [Cymbalta] 60 mg capsule,delayed release(DR/EC) 120 mg PO DAILY Qty: 60 RF: 2 hydroxyzine HCl 25 mg tablet 25 mg PO QID PRN (Reason: anxiety) Qty: 120 RF: 2 trazodone 50 mg tablet 50 mg PO .COMPLEX Qty: 60 RF: 2 Protonix 40 mg tablet,delayed release (DR/EC) 40 mg PO DAILY 42 Days RF: 3 Discharge Orders: Discharge ED (Routine); Ordered 10/31/21 Ordered By: Robyn Fernández Referrals: Lisa Samaniego, [employer] INBOARD/OUTBOARD [Primary Care Provider] - Patient Instructions: Opioid Safety Activity Restrictions/Additional Instructions: [facility] is committed to fighting the nationwide opiate epidemic. We are providing ALL patients with information regarding opiate safety. If you received opiate pain medication during your stay or if you received a prescription for opiate pain medication-please review this handout. If not, you may disregard. Thank you. As we discussed please follow-up with his primary care provider soon as possible for further evaluation of back pain does not improve. You need to return to the emergency department for severe back pain, uncontrollable pain at home, severe pain that radiates into your chest or abdomen, lightheadedness/dizziness, or any other concerns you may have. I hope you begin to feel better soon. 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
[2021-10-31 17:26] VITALS: RESP 18; O2SAT 100
[2021-10-31] MEDS: morphine 4 mg/mL SDV 1 mL IM (17:26)
[2021-10-31] MEDS: orphenadrine 30 mg/mL Inj 2 mL 60 MG IM (17:31)
[2021-10-31] MEDS: ketorolac 60 mg/2 mL INJ IM (17:31)
[2021-10-31 18:33] LABS: Add Urine Microscopic? NO; Charge for UA Resulting for Rev
[2021-10-31 18:45] LABS: Bilirubin Urine Neg (Negative); Blood Urine Neg (Negative); Glucose Urine UA Norm (Normal); Ketones Urine Negative (Negative); Leukocyte Esterase Urine Negative (Negative); Nitrate Urine Negative (Negative); Protein Urine Neg (Negative); Specific Gravity, Urine 1.025 (1.005-1.030); Urine Appearance Clear (CLEAR); Urine Color Yellow (Yellow); Urobilinogen Urine Norm (Negative); pH Urine 5 (5-7)
[2021-10-31] MEDS: HYDROcodone-acetaminophen 7.5-325 mg Tablet 2 TAB PO (18:46)
== END 2021-10-31 18:57 | disposition home or self-care (01) ==
PROVIDERS: Emergency Provider Physician Assistant; PCP Nurse Practitioner Family
DX: M54.89 Other dorsalgia (principal)
CPT/HCPCS: 81003; 96372; 99283; J1885; J2270; J2360

== ENCOUNTER → 2021-12-20 08:46 | Outpatient (BNVA) | payer MEDICAID, SELFPAY | PROVIDERS: PCP Nurse Practitioner Family; Visit Provider Counselor Professional | DX: F43.12 Post-traumatic stress disorder, chronic (principal); F41.1 Generalized anxiety disorder; F40.10 Social phobia, unspecified | CPT/HCPCS: 90837; 90834 ==

== ENCOUNTER → 2021-12-25 11:12 | Outpatient (BNVA) | payer MEDICAID, SELFPAY | PROVIDERS: PCP Nurse Practitioner Family; Visit Provider Nurse Practitioner | DX: F32.0 Major depressive disorder, single episode, mild (principal); F41.1 Generalized anxiety disorder | CPT/HCPCS: 99214 ==

== ENCOUNTER → 2022-01-24 11:56 | Outpatient (BNVA) | payer MEDICAID, SELFPAY | PROVIDERS: PCP Nurse Practitioner Family; Visit Provider Counselor Professional | DX: F43.12 Post-traumatic stress disorder, chronic (principal); F41.1 Generalized anxiety disorder; F40.10 Social phobia, unspecified | CPT/HCPCS: 90834 ==

== ENCOUNTER → 2022-01-28 09:49 | Outpatient (BNVA) | payer MEDICAID, SELFPAY | PROVIDERS: PCP Nurse Practitioner Family; Visit Provider Nurse Practitioner | DX: F32.0 Major depressive disorder, single episode, mild (principal); F41.1 Generalized anxiety disorder | CPT/HCPCS: 99214 ==

== ENCOUNTER → 2022-03-13 09:51 | Outpatient (BNVA) | payer MEDICAID, SELFPAY | PROVIDERS: PCP Nurse Practitioner Family; Visit Provider Counselor Professional | DX: F40.10 Social phobia, unspecified (principal); F41.1 Generalized anxiety disorder; F43.12 Post-traumatic stress disorder, chronic | CPT/HCPCS: 90832; 90834 ==

== ENCOUNTER → 2022-04-10 12:50 | Outpatient (BNVA) | payer MEDICAID, SELFPAY | PROVIDERS: PCP Nurse Practitioner Family; Visit Provider Counselor Professional | DX: F43.12 Post-traumatic stress disorder, chronic (principal); F41.1 Generalized anxiety disorder; F40.10 Social phobia, unspecified | CPT/HCPCS: 90834 ==

== ENCOUNTER → 2022-04-17 13:29 | Outpatient (BNVA) | payer MEDICAID, SELFPAY | PROVIDERS: PCP Nurse Practitioner Family; Visit Provider Counselor Professional | DX: F40.10 Social phobia, unspecified (principal); F41.1 Generalized anxiety disorder; F43.12 Post-traumatic stress disorder, chronic | CPT/HCPCS: 90834 ==

== ENCOUNTER 2022-07-31 11:52 | Outpatient (CLI) | payer MEDICAID, SELFPAY ==
--- NOTE | 2022-07-31 | CT_ITS ---
WS: [id number] CT ABDOMEN AND PELVIS WITH CONTRAST HISTORY: MESENTERIC LYMPHADENITIS TECHNIQUE: Imaging performed of the abdomen and pelvis with IV contrast. Single phase imaging of the abdomen. Coronal and sagittal reformats are submitted. All CT scans at [facility] use at [address] one of these dose optimization techniques: automated exposure control; mA and/or kV adjustment per patient size (includes targeted exams where dose is matched to clinical indication); or iterative re construction. IV CONTRAST: Omnipaque 350; 95 mL IV. Oral contrast: No DLP: 1269.53 mGy.cm COMPARISON: 04/19/2019 Lower thorax: Lung bases are clear. Heart is normal size. No hiatal hernia. Liver/biliary system: Focal fatty steatosis along the falciform ligament. No mass or bile duct dilata tion. Normal portal vein. Gallbladder: Mildly contracted gallbladder. Probably due to a nonfasting state. Pancreas: Normal size pancreas and pancreatic duct. No adjacent inflammation. Spleen: Normal size spleen. No mass or infarct. Adrenal glands: Normal. Right kidney: Normal size kidney. Cystic mass measuring 5.2 x 4.4 cm in the upper pole. No solid comp onent. There is an additional too small to characterize hypodensity in the lower pole. Left kidney: Normal. Aorta: Normal size aorta. No aortic dissection. No aneurysm. Mild ectasia with a maximum diameter of 2.9 cm. Celiac axis is normal. Proximal SMA is intact. Approximately 2 cm from the origin of the SMA there is mild enlargement. There is a very thin lucency in the lumen of the mid SMA which extends ove r several centimeters. Suspicious for an SMA dissection. This was not present on the prior study. Lymphadenopathy: None. There is minimal soft tissue stranding in the central mesentery similar to radhames or studies. Free fluid: None. GI tract: No ischemic changes present within the GI tract. No obstruction. Mild diffuse constipation. There are a few scattered diverticula in the distal colon. Abdominal wall: Fat containing umbilical hernia. Pelvis: Prostate gland calcifications. No free fluid. Urinary bladder is negative. Bones: L5 RIGHT pars defect. CT/CT abdomen pelvis w con* [id number] IMPRESSION: 1. 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 No aortic disse ction. Both lumens are enhancing and there are no ischemic changes in the GI tr act. 2. Very mild mesenteric misting with no adenopathy. 3. Simple RIGHT renal cyst. Notified ADRIANA Pacheco at 07/31/2022 1:34 PM.
[2022-07-31] MEDS: iohexol 350 mg/mL 100 mL Btl IV (12:04)
== END 2022-07-31 11:53 | disposition home or self-care (01) ==
LOC: RAD 11:53
PROVIDERS: PCP Nurse Practitioner Family; Visit Provider Nurse Practitioner Family
DX: I88.0 Nonspecific mesenteric lymphadenitis (principal); N28.1 Cyst of kidney, acquired
CPT/HCPCS: 74177

== ENCOUNTER → 2023-07-06 07:58 | Outpatient (BNVA) | payer MEDICAID, SELFPAY | PROVIDERS: PCP Nurse Practitioner Family; Visit Provider Otolaryngology | DX: H61.22 Impacted cerumen, left ear (principal); H93.13 Tinnitus, bilateral | CPT/HCPCS: 69210; 99202 ==

== ENCOUNTER → 2023-08-20 08:37 | Outpatient (BNVA) | payer MEDICAID, SELFPAY | PROVIDERS: PCP Nurse Practitioner Family; Referring Provider Nurse Practitioner Family; Visit Provider Surgery | DX: K21.9 Gastro-esophageal reflux disease without esophagitis (principal); R10.9 Unspecified abdominal pain | CPT/HCPCS: 99204; 99214 ==

== ENCOUNTER 2023-08-28 06:46 | Day surgery (SDC) | payer MEDICAID, SELFPAY ==
[2023-08-28 06:59] VITALS: BP 145/87; PULSE 60; RESP 18; TEMP 36.3; O2SAT 96; BMI 30.4
[2023-08-28] MEDS: sodium chloride 0.9% 1,000 ML 30 ML IV (07:07)
--- NOTE | 2023-08-28 07:17 | ANES.PREANE2 ---
Pre-Anesthetic Assessment Height/Weight: Height 1.73 m Weight 90.718 kg Temp Pulse Resp BP Pulse Ox O2 Del Method 97.4 F L 60 18 145/87 96 Room Air 08/28/23 06:59 08/28/23 06:59 08/28/23 06:59 08/28/23 06:59 08/28/23 06:59 08/28/23 06:59 Preop Diagnosis: Abdominal pain Operation Date: 08/28/23 08:15 Proposed Procedures p EGD [id number],R10.9(Not Applicable) - Lukas Lind DO Familial anesthetic complications: None Was Beta Julianne taken within 24 hours: N/A Was Clonidine taken within 24 hours: N/A Last intake: Intake Last Liquid Date 08/27/23 Last Liquid Time 20:00 Last Solid Date 08/27/23 Last Solid Time 20:00 Social No alcohol and No tobacco Exam alert, oriented x 3, clear to auscultation bilaterally and regular rate & rhythm Airway Submandibular: within normal limits Cervical ROM: Other (ACDF, limited ROM) Mallampati: Class II Dentition: full History/ROS No significant history except as noted and No significant complaints Pulmonary Exertional Dyspnea CV/HEM Hypertension None reported Hepatic None reported GI Gastroesophageal Reflux Disease Metabolic Hyperlipidemia Musc/skel Lower Back Pain and Osteoarthritis/DJD Neuropsych Anxiety, Depression and Neuropathy Anesthetic Plan ASA status: 2 Anesthesia: Anesthesia Evaluation, General and MAC Risk of > 500 ml blood loss (7ml/kg in children): No Medications/Allergies Home Medications Medication Instructions Recorded Confirmed Last Taken Type gabapentin 300 mg capsule 300 mg PO TID 12/06/19 08/28/23 08/27/23 History tramadol 50 mg tablet 100 mg PO TID PRN Pain 12/06/19 08/28/23 08/26/23 History ibuprofen 800 mg tablet 800 mg PO Q8H PRN pain #20 tabs 10/31/21 08/28/23 Unknown Rx duloxetine 60 mg capsule,delayed 120 mg PO DAILY #60 caps 12/25/21 08/27/23 08/27/23 Rx release (Cymbalta) enalapril maleate 5 mg tablet 5 mg PO TID 12/25/21 08/27/23 08/27/23 History hydroxyzine HCl 25 mg tablet 25 mg PO QID PRN anxiety #120 tabs 12/25/21 08/28/23 08/27/23 Rx buspirone 10 mg tablet 10 mg PO BID #60 tabs 01/28/22 08/27/23 08/27/23 Rx pantoprazole 40 mg tablet,delayed 40 mg PO BID PRN abdominal pain 6 08/20/23 08/27/23 08/27/23 Rx release (Protonix) weeks #28 tabs trazodone 50 mg tablet 50 mg PO .COMPLEX PRN Sleep 08/27/23 08/28/23 Unknown History Allergies Allergy/AdvReac Type Severity Reaction Status Date / Time No Known Allergies Allergy Verified 08/28/23 06:58 Current Medications Generic Name Dose Route Start Last Admin Trade Name Freq PRN Reason Stop Dose Admin Sodium Chloride 1,000 mls @ 30 mls/hr 08/28/23 07:00 08/28/23 07:07 Sodium Chloride 0.9% IV 08/29/23 06:59 30 mls/hr .Q24H JANEL Administration PFSH Anesthesia Medical History Chronic GERD Generalized anxiety disorder Major depressive disorder, single episode, mild Prostate calculus Surgical History H/O colonoscopy 2019 H/O esophagogastroduodenoscopy (07/30/20) H/O neck surgery History of prostate surgery Family History Father Cancer liver Family/Other Cancer uncle-lung Other CAD (coronary artery disease) Denies family history of Anesthesia complication Bleeding disorder Social History Smoking and tobacco/nicotine status: never used tobacco/nicotine Alcohol intake: never Substance/Drug Use: never Household members: spouse Marital status: Current occupational status: unemployed Data Anesthesia Cardiac Studies: Echocardiogram Ultrasound 07/13/20
--- NOTE | 2023-08-28 07:59 | W.PM.OPSUD ---
Surgery/Procedure H&P Update DATE OF PROCEDURE: August 28, 2023 DATE H&P PERFORMED: 08/20/23 H&P UPDATE INFORMATION: I have reviewed H&P completed within last 30 days, I have examined patient prior to procedure and No changes to prior documentation PREOP DIAGNOSIS: Abdominal pain PLANNED PROCEDURE: Operation Date: 08/28/23 08:15 Proposed Procedures p EGD 11091,R10.9(Not Applicable) - Lukas Lind DO
[2023-08-28 08:12] VITALS: BP 102/79; PULSE 56; RESP 14; TEMP 36.3; O2SAT 92
[2023-08-28 08:20] VITALS: BP 110/76; PULSE 62; RESP 16; O2SAT 96
[2023-08-28 08:30] VITALS: BP 121/83; PULSE 58; RESP 18; O2SAT 95
--- NOTE | 2023-08-28 12:44 | ANE.PACU2 ---
Inpatient post-anesthesia follow up: Airway intact: Yes Vital signs: Temperature 97.4 F Pulse Rate 58 Respiratory Rate 18 Blood Pressure 121/83 Pulse Oximetry 95 Oxygen Delivery Me thod Room Air Oxygen Flow Rate Fraction of Inspir ed Oxygen Hydration adequate: Yes Nausea and vomiting: No Pain level: 2 Mental status: Baseline
== END 2023-08-28 08:44 | disposition home or self-care (01) ==
PROVIDERS: PCP Nurse Practitioner Family; Visit Provider Surgery
PROC: 0DJ08ZZ Inspection of Upper Intestinal Tract, Via Natural or Artificial Opening Endoscopic (ICD-10-PCS; CPT 43235; principal; 2023-08-28 08:15)
DX: R10.9 Unspecified abdominal pain (principal); K29.80 Duodenitis without bleeding; I10 Essential (primary) hypertension; K21.9 Gastro-esophageal reflux disease without esophagitis; E78.5 Hyperlipidemia, unspecified; F41.1 Generalized anxiety disorder
CPT/HCPCS: 43239; 88305; J2704; J7030

== ENCOUNTER 2023-08-28 10:13 | Outpatient (CLI) | payer MEDICAID, SELFPAY ==
--- NOTE | 2023-08-28 10:21 | MM_ITS ---
WS: [id number] Bilateral diagnostic 3D tomosynthesis digital mammogram, 08/28/2023 Clinical Data: RT BR LUMP Comparison: None. Findings: The left breast is normal. The right breast shows anterior fibroglandular tissue which is typical of gynecomastia. No spiculated masses nor clustered calcifications are seen. There are no secondary sign s of carcinoma. Impression: 1. Right breast gynecomastia. 2. Negative left breast. 3. Recommend right breast ultrasound. MM/[place] [id number] BIRADS: 2-Benign FOLLOW UP: See Report The CAD battery checker was used.
--- NOTE | 2023-08-28 10:21 | US_ITS ---
WS: [id number] Right breast ultrasound, 08/28/2023 Clinical Data: RT BR LUMP Comparison: None. Findings: The ultrasound was performed at the central portion of the right breast adjacent to the nipple. There were nonspecific signals which are consistent with gynecomastia. There were no cysts or masses. Impression: 1. Right breast gynecomastia. 2. Recommend clinical follow-up. US/US breast RT limited* [id number] BIRADS: 2-Benign FOLLOW UP: See Report
== END 2023-08-28 10:14 | disposition home or self-care (01) ==
LOC: RAD 10:14
PROVIDERS: PCP Nurse Practitioner Family; Visit Provider Nurse Practitioner Family
DX: N62 Hypertrophy of breast (principal); N63.10 Unspecified lump in the right breast, unspecified quadrant
CPT/HCPCS: 76642; 77062; G0279

== ENCOUNTER 2023-09-09 15:12 | Outpatient (CLI) | payer MEDICAID, SELFPAY ==
--- NOTE | 2023-09-09 15:20 | MR_ITS ---
WS: [id number] MRI HEAD WITHOUT CONTRAST TECHNIQUE: Sagittal T1, T2 axial, T2 axial FLAIR, axial and coronal T1 images, axial susceptibility w eighted imaging, axial diffusion weighted images, and coronal T2 images were obtained. CLINICAL INFORMATION: DIZZINESS/MUSCLE WEAKNESS. MS? COMPARISON: None. FINDINGS: No evidence of restricted diffusion to suggest acute ischemia. Ventricular system and basilar cistern s are patent. Mild patchy supratentorial white matter changes mainly in the frontal lobes. Mild paren chymal volume loss. Normal corpus callosum. Normal posterior fossa. Normal vascular flow voids at the skull base. No extra-axial fluid collection s. No evidence of mass or mass effect. Paranasal sinuses and mastoid air cells are well aerated. No h emosiderin on the susceptibility weighted images. Normal posterior nasopharynx. IMPRESSION: 1. No evidence of restricted diffusion to suggest acute ischemia. 2. Patchy supratentorial white matter changes mainly in the frontal lobes nonspecific in a patient t his age but can be seen with hypertension, diabetes, and migraine headaches. Less likely demyelinatin g disease. Normal corpus callosum. 3. No suspicious infratentorial lesions. 4. Mild parenchymal volume loss. 5. No hemosiderin on the susceptibly weighted images.
== END 2023-09-09 15:13 | disposition home or self-care (01) ==
LOC: RAD 15:13
PROVIDERS: PCP Nurse Practitioner Family; Visit Provider Nurse Practitioner Family
DX: R42 Dizziness and giddiness (principal); M62.81 Muscle weakness (generalized)
CPT/HCPCS: 70551

== ENCOUNTER → 2023-09-15 09:27 | Outpatient (BNVA) | payer MEDICAID, SELFPAY | PROVIDERS: PCP Nurse Practitioner Family; Visit Provider Surgery | DX: K55.1 Chronic vascular disorders of intestine (principal) | CPT/HCPCS: 99214 ==

== ENCOUNTER 2023-10-13 15:12 | Emergency (ER) | payer MEDICAID, SELFPAY ==
[2023-10-13] VITALS (7 sets, daily range): BP systolic 106–130; BP diastolic 70–86; PULSE 66–73; RESP 15–21; TEMP 36.6; O2SAT 92–98; BMI 30.4
--- NOTE | 2023-10-13 15:22 | CTR_ITS ---
PROCEDURE INFORMATION: Exam: CT Abdomen And Pelvis With Contrast Exam date and time: 10/13/2023 4:53 PM Age: 58 years old Clinical indication: Abdominal pain; Generalized; Additional info: Abd pain TECHNIQUE: Imaging protocol: Computed tomography of the abdomen and pelvis with contrast. Sagittal and coronal reformatted images were created and reviewed. Radiation optimization: All CT scans at this facility use at least one of these dose optimization techniques: automated exposure control; mA and/or kV adjustment per patient size (includes targeted exams where dose is matched to clinical indication); or iterative reconstruction. Contrast material: OMNI 350; Contrast volume: 100 ml; Contrast route: INTRAVENOUS (IV); REPORTING DATA: Count of CT and Cardiac NM exams in prior 12 months: This patient has received 0 known CTs and 0 known cardiac nuclear medicine studies in the 12 months prior to the current study. COMPARISON: CT abdomen pelvis w con* [id number] 07/31/2022 12:15 PM RADIATION DOSE METRICS: Total DLP (mGy-cm): 919 FINDINGS: Lungs: Dependent atelectasis in the visualized lungs. Pleural spaces: No pleural effusion. Heart: Visualized cardiac chambers are unremarkable. Liver: The liver is unremarkable. Gallbladder and bile ducts: The gallbladder is unremarkable. No biliary ductal dilatation. Pancreas: The pancreas is unremarkable. No pancreatic ductal dilatation. Spleen: The spleen is unremarkable. Adrenal glands: The right and left adrenal glands are unremarkable. Kidneys and ureters: Stable subcentimeter hypodense foci in both right and left kidneys that are too small to characterize, however likely represent small cysts. Simple cyst in the right kidney is stable in size measuring 6.1 cm. Stomach and bowel: Ingested food in the visualized distal esophagus. Numerous diverticula in the sigmoid colon. No evidence for diverticulitis. Fluid within the small bowel without evidence of bowel wall thickening. Appendix: Appendix not definitely visualized. No inflammatory changes in the pericecal region however. Intraperitoneal space: No free intraperitoneal air. No ascites. No loculated fluid collections to suggest an abscess. Vasculature: Minimal atherosclerotic changes in the visualized arteries. No evidence for aortic aneurysm or aortic dissection. Hepatic veins, portal veins, splenic vein, and SMV are patent. Lymph nodes: No lymphadenopathy. Urinary bladder: Diffuse, mild bladder wall thickening . Reproductive: Stable nonspecific parenchymal calcifications in the prostate gland. Bones/joints: Degenerative changes in the spine, sacroiliac joints, and hips. Soft tissues: No acute abnormality in the extra-abdominal soft tissues. CT/CT abdomen pelvis w con* [id number] IMPRESSION: 1. Fluid within the small bowel without evidence of bowel wall thickening. This may reflect viral gastroenteritis in the appropriate clinical situation. 2. Ingested food in the visualized distal esophagus. This could be due to retained esophageal contents from poor esophageal motility versus gastroesophageal reflux. Recommend clinical correlation. Upper GI examination or upper endoscopy may be obtained for further evaluation as clinically indicated. 3. Diffuse, mild bladder wall thickening . In the correct clinical setting, this may suggest cystitis. Recommend correlation with laboratory findings. Alternatively, this may be secondary to chronic outlet obstruction. 4. Sigmoid diverticulosis. No evidence for diverticulitis. 5. Incidental/nonacute findings are listed in the report.
--- NOTE | 2023-10-13 15:27 | W.ED.ABDPA2 ---
HPI - Abdominal Pain General: Chief Complaint: Abdominal Pain Stated Complaint: abd pain, nausea Time Seen by Provider: 10/13/23 15:14 Source: patient Mode of arrival: ambulatory Limitations: no limitations History of Present Illness: 58-year-old male states he down right lower quadrant pain over the last 2 days states its gotten worse today states pain sharp in nature rates it a 7 out of 10 denies any fevers. Denies any dysuria denies any vomiting or diarrhea. Denies any radiation of his pain. Associated Symptoms: Denies chills, diarrhea, fever(s), nausea and vomiting Review of Systems Const: Denies: fever(s), chills, body aches or change in appetite ENMT: Denies: throat pain or dental pain Card: Denies: chest pain Resp: Denies: dyspnea GI: Reports: abdominal pain; Denies: nausea, vomiting or diarrhea Musc: Denies: neck pain or back pain Skin/Breast: Denies: rash Neuro: Denies: headache(s) PFSH ED PFSH: Medical History Prostate calculus Chronic GERD Major depressive disorder, single episode, mild Generalized anxiety disorder Surgical History H/O esophagogastroduodenoscopy (07/30/20) History of prostate surgery H/O colonoscopy 2020 H/O neck surgery Family History Father Cancer liver Family/Other Cancer uncle-lung Other CAD (coronary artery disease) Denies family history of Anesthesia complication Bleeding disorder Social History Smoking and tobacco/nicotine status: never used tobacco/nicotine Alcohol intake: never Substance/Drug Use: never Household members: spouse Marital status: Current occupational status: unemployed Physical Exam Const: COMMON NORMALS: no acute distress, patient oriented x3 and healthy appearing HENMT: COMMON NORMALS: normocephalic and atraumatic HEAD & SCALP: normocephalic and atraumatic Neck/C-Spine: COMMON NORMALS: full ROM and supple Chest: COMMONS NORMALS: normal inspection of the chest and normal palpation of entire chest wall Resp: COMMON NORMALS: normal respiratory effort, No retractions, No use of accessory muscles and clear to auscultation bilaterally AUSCULTATION: clear to auscultation bilaterally Cardio: COMMON NORMALS: regular rate, regular rhythm and No murmurs present (Cardio) RATE: regular rate RHYTHM: regular rhythm GI: COMMON NORMALS: Normal to inspection, nondistended, normoactive bowel sounds present, Soft to palpation and no masses PALPATION: Yes Soft to palpation and Yes Tenderness to palpation present (GI) Details: RLQ Extremity: COMMON NORMALS: normal to inspection and full ROM Neuro: COMMON NORMALS: patient oriented x3, moves all extremities and no focal motor deficits Psych: COMMON NORMALS: mental status grossly normal, Normal thought process present and cooperative THOUGHT PROCESS: Normal thought process present Skin: COMMON NORMALS: no rashes or lesions noted and no wounds GENERAL SKIN EXAM: no rashes or lesions noted Course Vital Signs: Vital signs: Vital Signs Temperature 97.8 F 10/13/23 15:18 Pulse Rate 73 10/13/23 17:12 Respiratory Rate 19 H 10/13/23 17:12 Blood Pressure 116/79 10/13/23 17:12 Pulse Oximetry 92 10/13/23 17:12 Oxygen Delivery Me thod Room Air 10/13/23 17:12 MDM - Abdominal Pain Medical Decision Making Patient presents here with abdominal pain blood work here is normal no acute findings on CT no signs of appendicitis. He feels improved here we will prescribe him Reglan for home he is to follow-up his PCP and return if worsening he understands agrees to plan. Medical Records I reviewed the patient's medical records. Lab Data I reviewed the patient's lab results. 10/13/23 15:39 10/13/23 15:39 Labs/Radiology: Radiology Impressions Abdomen/Pelvis CT 10/13/23 15:22 IMPRESSION: 1. Fluid within the small bowel without evidence of bowel wall thickening. This may reflect viral gastroenteritis in the appropriate clinical situation. 2. Ingested food in the visualized distal esophagus. This could be due to retained esophageal contents from poor esophageal motility versus gastroesophageal reflux. Recommend clinical correlation. Upper GI examination or upper endoscopy may be obtained for further evaluation as clinically indicated. 3. Diffuse, mild bladder wall thickening . In the correct clinical setting, this may suggest cystitis. Recommend correlation with laboratory findings. Alternatively, this may be secondary to chronic outlet obstruction. 4. Sigmoid diverticulosis. No evidence for diverticulitis. 5. Incidental/nonacute findings are listed in the report. Laboratory Results WBC 8.41 10^3/uL (3.29-11.43) 10/13/23 15:39 RBC 5.43 10^6/uL (3.85-5.65) 10/13/23 15:39 Hgb 16.40 g/dL (11.27-16.99) 10/13/23 15:39 Hct 47.6 % (37-53) 10/13/23 15:39 MCV 87.7 fl (82-101) 10/13/23 15:39 MCH 30.2 pg (27-33) 10/13/23 15:39 MCHC 34.5 g/dL (30-55) 10/13/23 15:39 RDW 13.1 % (12.1-15.1) 10/13/23 15:39 Plt Count 263 10^3/cmm (157-399) 10/13/23 15:39 MPV 10.1 fL (7.4-10.4) 10/13/23 15:39 Neut % (Auto) 54.6 % 10/13/23 15:39 Lymph % (Auto) 34.7 % 10/13/23 15:39 [place] % (Auto) 7.0 % 10/13/23 15:39 Eos % (Auto) 2.9 % 10/13/23 15:39 Baso % (Auto) 0.6 % 10/13/23 15:39 Neut # (Auto) 4.59 10^3/uL (1.8-7.7) 10/13/23 15:39 Lymph # (Auto) 2.9 10^3/uL (0.8-4.8) 10/13/23 15:39 [place] # (Auto) 0.6 10^3/uL (0.2-0.9) 10/13/23 15:39 Eos # (Auto) 0.2 10^3/uL (0.0-0.8) 10/13/23 15:39 Baso # (Auto) 0.1 10^3/uL (0.0-0.1) 10/13/23 15:39 Nucleated RBC % (auto) 0 % 10/13/23 15:39 Nucleated RBCs # 0.0 /100WBC 10/13/23 15:39 Sodium 138 mmol/L (136-145) 10/13/23 15:39 Potassium 4.1 mmol/L (3.5-5.1) 10/13/23 15:39 Chloride 102 mmol/L (98-107) 10/13/23 15:39 Carbon Dioxide 26 mmol/L (22-29) 10/13/23 15:39 Anion Gap 14.1 (5-19) 10/13/23 15:39 BUN 16 mg/dL (6-20) 10/13/23 15:39 Creatinine 1.0 mg/dL (0.7-1.2) 10/13/23 15:39 GFR Calculation 77.3 mL/min (90-130) L 10/13/23 15:39 Glucose 135 mg/dL (65-115) H 10/13/23 15:39 Calculated Osmolality 289 mOsm/kg (285-295) 10/13/23 15:39 Calcium 10.0 mg/dL (8.5-10.5) 10/13/23 15:39 Total Bilirubin 0.2 mg/dL (0.15-1.2) 10/13/23 15:39 AST 22 U/L (0-40) 10/13/23 15:39 ALT 52 U/L (0-41) H 10/13/23 15:39 Alkaline Phosphatase 106 U/L (40-130) 10/13/23 15:39 Total Protein 7.4 g/dL (6.6-8.7) 10/13/23 15:39 Albumin 4.6 g/dL (3.5-5.2) 10/13/23 15:39 Globulin 2.8 g/dL (1.3-4.6) 10/13/23 15:39 Lipase 30 U/L (13-60) 10/13/23 15:39 Urine Color Yellow (Yellow) 10/13/23 16:34 Urine Appearance Clear (CLEAR) 10/13/23 16:34 Urine pH 6 (5-7) 10/13/23 16:34 Ur Specific [place] 1.020 (1.005-1.030) 10/13/23 16:34 Urine Protein Neg (Negative) 10/13/23 16:34 Urine Glucose (UA) Norm (Normal) 10/13/23 16:34 Urine Ketones Negative (Negative) 10/13/23 16:34 Urine Blood Neg (Negative) 10/13/23 16:34 Urine Nitrate Negative (Negative) 10/13/23 16:34 Urine Bilirubin Neg (Negative) 10/13/23 16:34 Urine Urobilinogen Norm mg/dL (Negative) 10/13/23 16:34 Ur Leukocyte Esterase Negative (Negative) 10/13/23 16:34 All radiology interpretation(s) finalized by discharge Discharge Plan Discharge Patient Disposition: Home Clinical Impression: Abdominal pain Qualifiers: Abdominal location: generalized Qualified Code(s): R10.84 - Generalized abdominal pain Condition: Stable Prescriptions: New Reglan 10 mg tablet 10 mg PO Q6H PRN (Reason: nausea and vomiting) Qty: 20 0RF No Action duloxetine [Cymbalta] 60 mg capsule,delayed release(DR/EC) 120 mg PO DAILY Qty: 60 2RF pantoprazole [Protonix] 40 mg tablet,delayed release (DR/EC) 40 mg PO BID PRN (Reason: abdominal pain) 42 Days Qty: 28 0RF atorvastatin 40 mg tablet 40 mg PO QPM carvedilol 25 mg tablet 25 mg PO BID nifedipine 90 mg tablet extended release 90 mg PO DAILY hydralazine 50 mg tablet 50 mg PO QID Eliquis 5 mg tablet 5 mg PO BID Discharge Orders: Discharge ED (Routine); Ordered 10/13/23 Ordered By: Lisandra Castillo Referrals: Rolon,Michelle, SYSTEMS ARCHITECTURE ANALYST [Primary Care Provider] - 1-3 days Discharge Diet: Advance as tolerated Discharge Activity: Resume usual activity Patient Instructions: Abdominal Pain (ED) Coding Level of Care Code ED Nba Player for Derrickg Elbert
[2023-10-13] MEDS: morphine 4 mg/mL SDV 1 mL IVP (15:44)
[2023-10-13] MEDS: ondansetron 2 mg/ML SDV 2 mL 4 MG IVP (15:44)
[2023-10-13 16:04] LABS: Basophils # 0.1 10^3/uL (0.0-0.1); Basophils % 0.6 %; Eosinophils # 0.2 10^3/uL (0.0-0.8); Eosinophils % 2.9 %; Hematocrit 47.6 % (37-53); Lymphocytes # 2.9 10^3/uL (0.8-4.8); Lymphocytes % 34.7 %; Mean Corpuscular HGB Conc 34.5 g/dL (30-55); Mean Corpuscular Hemoglobin 30.2 pg (27-33); Mean Corpuscular Volume 87.7 fl (82-101); Mean Platelet Volume 10.1 fL (7.4-10.4); Monocytes # 0.6 10^3/uL (0.2-0.9); Neutrophils # 4.59 10^3/uL (1.8-7.7); Neutrophils % 54.6 %; Nucleated Red Blood Cells % 0 %; Platelet Count 263 10^3/cmm (157-399); Red Blood Count 5.43 10^6/uL (3.85-5.65); Red Cell Distribution Width 13.1 % (12.1-15.1); White Blood Count 8.41 10^3/uL (3.29-11.43)
[2023-10-13 16:15] LABS: Alanine Aminotransferase 52 U/L (0-41); Albumin Level 4.6 g/dL (3.5-5.2); Alkaline Phosphatase 106 U/L (40-130); Anion Gap 14.1 (5-19); Aspartate Amino Transferase 22 U/L (0-40); Blood Urea Nitrogen 16 mg/dL (6-20); Carbon Dioxide 26 mmol/L (22-29); Chloride 102 mmol/L (98-107); Globulin 2.8 g/dL (1.3-4.6); Glomerular Filtration Rate 77.3 mL/min (90-130); Glucose 135 mg/dL (65-115); Lipase 30 U/L (13-60); Osmolality Calculated 289 mOsm/kg (285-295); Potassium 4.1 mmol/L (3.5-5.1); Sodium 138 mmol/L (136-145); Total Bilirubin 0.2 mg/dL (0.15-1.2); Total Protein 7.4 g/dL (6.6-8.7)
[2023-10-13] MEDS: iohexol 350 mg/mL 500 mL Btl (per mL) IV (17:01)
[2023-10-13 17:22] LABS: Add Urine Microscopic? NO; Charge for UA Resulting for Rev
[2023-10-13 17:27] LABS: Bilirubin Urine Neg (Negative); Blood Urine Neg (Negative); Glucose Urine UA Norm (Normal); Ketones Urine Negative (Negative); Leukocyte Esterase Urine Negative (Negative); Nitrate Urine Negative (Negative); Protein Urine Neg (Negative); Urine Appearance Clear (CLEAR); Urine Color Yellow (Yellow); Urobilinogen Urine Norm (Negative); pH Urine 6 (5-7)
== END 2023-10-13 17:50 | disposition home or self-care (01) ==
PROVIDERS: Emergency Provider Emergency Medicine; PCP Nurse Practitioner Family
DX: R10.84 Generalized abdominal pain (principal); Z79.01 Long term (current) use of anticoagulants; K57.30 Diverticulosis of large intestine without perforation or abscess without bleeding
CPT/HCPCS: 74177; 80053; 81003; 83690; 85025; 96374; 96375; 99285; J2270; J2405; Q9967

== ENCOUNTER → 2023-11-10 13:22 | Outpatient (BNVA) | payer MEDICAID, SELFPAY | PROVIDERS: PCP Nurse Practitioner Family; Visit Provider Surgery | DX: G89.29 Other chronic pain; R10.84 Generalized abdominal pain; K21.9 Gastro-esophageal reflux disease without esophagitis; R19.8 Other specified symptoms and signs involving the digestive system and abdomen | CPT/HCPCS: 36415; 82784; 83516; 86364; 99214 ==

== ENCOUNTER 2023-11-19 08:53 | Outpatient (CLI) | payer MEDICAID, SELFPAY ==
--- NOTE | 2023-11-19 09:00 | US_ITS ---
WS: [id number] RIGHT UPPER QUADRANT ULTRASOUND HISTORY: abdominal pain COMPARISON: 03/20/2020 Liver: 16.6 cm in length. Normal size liver with coarse echotexture. No mass. No bile duct dilatation . Portal Vein: Normal hepatopetal flow with monophasic waveform. Gallbladder: Normally distended gallbladder with no stones or wall thickening. CBD: 0.4 cm Pancreas: Poorly visualized due to body habitus and bowel gas. Right kidney: 12.0 cm in length. Normal size kidney. Cyst upper pole is lobulated measuring 3.7 x 4.3 x 5.7 cm. This cyst was previously described on 03/20/2020 with minimal change in size. No solid compo nent. Aorta and IVC: Unremarkable abdominal aorta and IVC. No ascites. IMPRESSION: 1. Normal gallbladder. 2. Minimal increase in size of a previously described simple cyst upper pole RIGHT kidney. 3. Mild hepatic steatosis.
--- NOTE | 2023-11-19 10:00 | NM_ITS ---
WS: [id number] NUCLEAR MEDICINE GASTRIC EMPTYING EXAMINATION HISTORY: chronic abdominal pain COMPARISON: None available. TECHNIQUE: The patient ingested a meal containing 1.1 mCi of Tc 99m sulfur colloid mixed with eggs. The patient was placed in supine position and imaging over the abdomen was performed for a total of 9 0 minutes. Computer acquisition with the region of interest placed over the stomach to evaluate gastr ic emptying half-time. Good distention of the stomach with the radionuclide. Half-time and emptying is at 108 minutes. This is a normal gastric emptying time. IMPRESSION: Normal gastric emptying time.
== END 2023-11-19 08:54 | disposition home or self-care (01) ==
LOC: RAD 08:53
PROVIDERS: PCP Nurse Practitioner Family; Visit Provider Surgery
DX: R10.84 Generalized abdominal pain (principal); G89.29 Other chronic pain; N28.1 Cyst of kidney, acquired; K76.0 Fatty (change of) liver, not elsewhere classified
CPT/HCPCS: 76705; 78264; A9541

== ENCOUNTER → 2023-12-11 08:04 | Outpatient (BNVA) | payer MEDICAID, SELFPAY | PROVIDERS: PCP Nurse Practitioner Family; Visit Provider Surgery | DX: K21.9 Gastro-esophageal reflux disease without esophagitis (principal); R10.84 Generalized abdominal pain; K55.1 Chronic vascular disorders of intestine; R19.8 Other specified symptoms and signs involving the digestive system and abdomen; Z79.899 Other long term (current) drug therapy | CPT/HCPCS: 99214 ==

== ENCOUNTER 2023-12-19 14:31 | Emergency (ER) | payer MEDICAID, SELFPAY ==
[2023-12-19 14:34] VITALS: BP 114/68; PULSE 76; RESP 17; TEMP 36.6; O2SAT 95; BMI 30.7
--- NOTE | 2023-12-19 14:42 | ECG_ITS ---
[facility] Test Date: 2023-12-19 Pat Name: Wilner Hollingsworth Department: Room: Gender: Male Insect Control Inspector: : 1965 Requested By: Oliver Weller Order Number: [id number] Regulo MD: Tod Davies M.D. Measurements Intervals [place] Rate: 70 P: 31 VA: 159 QRS: -15 QRSD: 105 T: 36 QT: 365 QTc: 394 Interpretive Statements SINUS RHYTHM No previous ECG available for comparison Electronically Signed On 12-21-2023 9:31:22 MEDICAL FRONT DESK SPECIALIST by Tod Davies M.D. [id number]
--- NOTE | 2023-12-19 16:35 | ED_ITS ---
HPI - Abdominal Pain 2 General: Chief Complaint: Abdominal Pain Stated Complaint: abd pain Time Seen by Provider: 12/19/23 16:30 Source: patient Mode of arrival: ambulatory History of Present Illness: 58-year-old male presents emergency room concerned about we describes a bulge in his abdomen. He has a history of stable mesenteric and renal arterial dissections. He is complaining that when he sits up or moves he notices large bulge in his abdomen. He also had some nausea and belching last couple of days. States it seems to be worse after he eats. He denies any dysuria urgency or frequency no hematochezia melena hematemesis or coffee-ground emesis MD elicited complaint: abdominal pain Onset (ago): day(s) (3) Pain Consistency: intermittent Location: Epigastric Severity: mild Quality: cramping Radiation: none Exacerbating factors: eating Relieving factors: nothing Associated Symptoms: Denies anorexia, belching, bloating, change in bowel habits, change in stool character, chills, coffee ground emesis, constipation, GI cramping, diarrhea, dyspepsia, dysuria, excessive flatus, fever(s), heartburn, hematochezia, hematuria, hematemesis, fecal incontinence, loose stools, melena, nausea, poor appetite, syncope and vomiting Review of Systems 2 Const: Denies: fever(s) or chills Card: Denies: chest pain or syncope Resp: Denies: dyspnea GI: Denies: abdominal pain, nausea, vomiting, hematemesis, coffee ground emesis, heartburn, diarrhea, constipation, bloating, GI cramping, belching, excessive flatus, fecal incontinence, change in bowel habits, change in stool character, hematochezia or melena : Denies: dysuria, urinary frequency, urinary urgency or hematuria Musc: Denies: neck pain or back pain Skin/Breast: Denies: rash PFSH ED 2 PFSH: Medical History Prostate calculus Chronic GERD Major depressive disorder, single episode, mild Generalized anxiety disorder Surgical History H/O esophagogastroduodenoscopy (07/30/20) History of prostate surgery H/O colonoscopy 2020 H/O neck surgery Family History Father Cancer liver Family/Other Cancer uncle-lung Other CAD (coronary artery disease) Denies family history of Anesthesia complication Bleeding disorder Social History Smoking and tobacco/nicotine status: never used tobacco/nicotine Alcohol intake: never Substance/Drug Use: never Household members: spouse Marital status: Current occupational status: unemployed Physical Exam 2 Const: COMMON NORMALS: no acute distress GENERAL APPEARANCE: cooperative and comfortable ORIENTATION/CONSCIOUSNESS: Yes awake, Yes oriented to person, Yes oriented to place and Yes oriented to time HENMT: COMMON NORMALS: normocephalic, atraumatic and hearing grossly normal bilaterally HEAD & SCALP: normocephalic and atraumatic Resp: COMMON NORMALS: normal respiratory effort, No retractions, No use of accessory muscles and clear to auscultation bilaterally AUSCULTATION: clear to auscultation bilaterally Cardio: COMMON NORMALS: regular rate, regular rhythm and No murmurs present (Cardio) RATE: regular rate RHYTHM: regular rhythm GI: COMMON NORMALS: Soft to palpation and No hepatosplenomegaly present A USCULTATION: Yes normoactive bowel sounds PALPATION: Yes Soft to palpation, No Tenderness to palpation present (GI), No Guarding due to palpation present (GI) and Yes No hepatosplenomegaly present OTHER: Midline rectus diastasis no incarcerated hernia Extremity: COMMON NORMALS: normal to inspection, capillary refill normal, no clubbing, cyanosis or edema, no calf tenderness and no pedal edema Neuro: SENSORIUM/ORIENTATION: Yes oriented to person, Yes oriented to place and Yes oriented to time Skin: COMMON NORMALS: no rashes or lesions noted GENERAL SKIN EXAM: no rashes or lesions noted Course 2 Vital Signs: Vital signs: Vital Signs Temperature 98 F 12/19/23 14:34 Pulse Rate 76 12/19/23 14:34 Respiratory Rate 17 12/19/23 14:34 Blood Pressure 114/68 12/19/23 14:34 Pulse Oximetry 95 12/19/23 14:34 Oxygen Delivery Me thod Room Air 12/19/23 14:34 MDM - Abdominal Pain Medical Decision Making Laboratory test generally unremarkable. No anemia no sign of acute bleed. His ALT is very slightly elevated but the rest of his laboratory studies are otherwise unremarkable. Reassurance given. He is not having any pain radiating to his back at this time no ischemic bowel like symptoms. Discussed with him that the rectus diastasis something that is weakness in the abdominal wall and is usually not something that we recommend for surgical repair follow-up with his primary care doctor Differential Diagnosis Likely abdominal pain, calculus of kidney, constipation, diverticulitis, gastroenteritis, pancreatitis and small bowel obstruction Medical Records I reviewed the patient's medical records. Lab Data I reviewed the patient's lab results. 12/19/23 16:54 12/19/23 16:54 Labs/Radiology: Laboratory Results WBC 8.35 10^3/uL (3.29-11.43) 12/19/23 16:54 RBC 4.93 10^6/uL (3.85-5.65) 12/19/23 16:54 Hgb 15.00 g/dL (11.27-16.99) 12/19/23 16:54 Hct 43.6 % (37-53) 12/19/23 16:54 MCV 88.4 fl (82-101) 12/19/23 16:54 MCH 30.4 pg (27-33) 12/19/23 16:54 MCHC 34.4 g/dL (30-55) 12/19/23 16:54 RDW 13.4 % (12.1-15.1) 12/19/23 16:54 Plt Count 241 10^3/cmm (157-399) 12/19/23 16:54 MPV 10.1 fL (7.4-10.4) 12/19/23 16:54 Neut % (Auto) 60.6 % 12/19/23 16:54 Lymph % (Auto) 30.1 % 12/19/23 16:54 [place] % (Auto) 7.1 % 12/19/23 16:54 Eos % (Auto) 1.8 % 12/19/23 16:54 Baso % (Auto) 0.2 % 12/19/23 16:54 Neut # (Auto) 5.06 10^3/uL (1.8-7.7) 12/19/23 16:54 Lymph # (Auto) 2.5 10^3/uL (0.8-4.8) 12/19/23 16:54 [place] # (Auto) 0.6 10^3/uL (0.2-0.9) 12/19/23 16:54 Eos # (Auto) 0.2 10^3/uL (0.0-0.8) 12/19/23 16:54 Baso # (Auto) 0.0 10^3/uL (0.0-0.1) 12/19/23 16:54 Nucleated RBC % (auto) 0 % 12/19/23 16:54 Nucleated RBCs # 0.0 /100WBC 12/19/23 16:54 Sodium 139 mmol/L (136-145) 12/19/23 16:54 Potassium 4.2 mmol/L (3.5-5.1) 12/19/23 16:54 Chloride 106 mmol/L (98-107) 12/19/23 16:54 Carbon Dioxide 23 mmol/L (22-29) 12/19/23 16:54 Anion Gap 14.2 (5-19) 12/19/23 16:54 BUN 22 mg/dL (6-20) H 12/19/23 16:54 Creatinine 1.3 mg/dL (0.7-1.2) H 12/19/23 16:54 GFR Calculation 57.1 mL/min (90-130) L 12/19/23 16:54 Glucose 100 mg/dL (65-115) 12/19/23 16:54 Calculated Osmolality 291 mOsm/kg (285-295) 12/19/23 16:54 Calcium 9.1 mg/dL (8.5-10.5) 12/19/23 16:54 Total Bilirubin 0.3 mg/dL (0.15-1.2) 12/19/23 16:54 AST 27 U/L (0-40) 12/19/23 16:54 ALT 48 U/L (0-41) H 12/19/23 16:54 Alkaline Phosphatase 92 U/L (40-130) 12/19/23 16:54 Total Protein 7.2 g/dL (6.6-8.7) 12/19/23 16:54 Albumin 4.4 g/dL (3.5-5.2) 12/19/23 16:54 Globulin 2.8 g/dL (1.3-4.6) 12/19/23 16:54 Lipase 29 U/L (13-60) 12/19/23 16:54 Urine Color Yellow (Yellow) 12/19/23 16:36 Urine Appearance Clear (CLEAR) 12/19/23 16:36 Urine pH 5 (5-7) 12/19/23 16:36 Ur Specific [place] 1.025 (1.005-1.030) 12/19/23 16:36 Urine Protein Trace (Negative) 12/19/23 16:36 Urine Glucose (UA) Norm (Normal) 12/19/23 16:36 Urine Ketones Negative (Negative) 12/19/23 16:36 Urine Blood Neg (Negative) 12/19/23 16:36 Urine Nitrate Negative (Negative) 12/19/23 16:36 Urine Bilirubin 1+ (Negative) H 12/19/23 16:36 Urine Urobilinogen 1 mg/dL (Negative) H 12/19/23 16:36 Ur Leukocyte Esterase Negative (Negative) 12/19/23 16:36 Urine RBC None /hpf (0-2) 12/19/23 16:36 Urine WBC 0-4 /hpf (0-5) H 12/19/23 16:36 Ur Squamous Epith Cells 0-4 /hpf (0-5) H 12/19/23 16:36 Amorphous Sediment Not Reportable 12/19/23 16:36 Urine Bacteria Trace /hpf (NONE) 12/19/23 16:36 Hyaline Casts 15-25 /lpf H 12/19/23 16:36 Urine Mucus 2+ /hpf 12/19/23 16:36 All radiology interpretation(s) finalized by discharge Discharge Plan Discharge Patient Disposition: Home Clinical Impression: Biliary colic, Dyspepsia, Rectus diastasis Condition: Stable Prescriptions: New Protonix 40 mg tablet,delayed release (DR/EC) 40 mg PO BID Qty: 60 0RF Discontinued pantoprazole [Protonix] 40 mg tablet,delayed release (DR/EC) 40 mg PO BID PRN (Reason: abdominal pain) 42 Days Qty: 28 0RF No Action duloxetine [Cymbalta] 60 mg capsule,delayed release(DR/EC) 120 mg PO DAILY Qty: 60 2RF atorvastatin 40 mg tablet 40 mg PO QPM carvedilol 25 mg tablet 25 mg PO BID nifedipine 90 mg tablet extended release 90 mg PO DAILY hydralazine 50 mg tablet 50 mg PO QID Eliquis 5 mg tablet 5 mg PO BID Reglan 10 mg tablet 10 mg PO Q6H PRN (Reason: nausea and vomiting) Qty: 20 0RF Discharge Orders: Discharge ED (Routine); Ordered 12/19/23 Ordered By: Oliver Fisher Referrals: Rolon,Michelle, SPANISH MEDICAL INTERPRETER [Primary Care Provider] - Discharge Diet: As Directed Patient Instructions: Biliary Colic (ED), Diet for Stomach Ulcers and Gastritis (ED), Abdominal Pain (ED), Opioid Safety, Pain Management Coding Level of Care Code ED Financial Services Intern for Kevin Boswell
[2023-12-19 17:08] LABS: Basophils % 0.2 %; Eosinophils # 0.2 10^3/uL (0.0-0.8); Eosinophils % 1.8 %; Hematocrit 43.6 % (37-53); Lymphocytes # 2.5 10^3/uL (0.8-4.8); Lymphocytes % 30.1 %; Mean Corpuscular HGB Conc 34.4 g/dL (30-55); Mean Corpuscular Hemoglobin 30.4 pg (27-33); Mean Corpuscular Volume 88.4 fl (82-101); Mean Platelet Volume 10.1 fL (7.4-10.4); Monocytes # 0.6 10^3/uL (0.2-0.9); Monocytes % 7.1 %; Neutrophils # 5.06 10^3/uL (1.8-7.7); Neutrophils % 60.6 %; Nucleated Red Blood Cells % 0 %; Platelet Count 241 10^3/cmm (157-399); Red Blood Count 4.93 10^6/uL (3.85-5.65); Red Cell Distribution Width 13.4 % (12.1-15.1); White Blood Count 8.35 10^3/uL (3.29-11.43)
[2023-12-19 17:25] LABS: Alanine Aminotransferase 48 U/L (0-41); Albumin Level 4.4 g/dL (3.5-5.2); Alkaline Phosphatase 92 U/L (40-130); Anion Gap 14.2 (5-19); Aspartate Amino Transferase 27 U/L (0-40); Blood Urea Nitrogen 22 mg/dL (6-20); Calcium 9.1 mg/dL (8.5-10.5); Carbon Dioxide 23 mmol/L (22-29); Chloride 106 mmol/L (98-107); Globulin 2.8 g/dL (1.3-4.6); Glomerular Filtration Rate 57.1 mL/min (90-130); Glucose 100 mg/dL (65-115); Lipase 29 U/L (13-60); Osmolality Calculated 291 mOsm/kg (285-295); Potassium 4.2 mmol/L (3.5-5.1); Sodium 139 mmol/L (136-145); Total Bilirubin 0.3 mg/dL (0.15-1.2); Total Protein 7.2 g/dL (6.6-8.7)
[2023-12-19 17:26] LABS: Add Urine Microscopic? YES; Bilirubin Urine 1+ (Negative); Blood Urine Neg (Negative); Glucose Urine UA Norm (Normal); Ketones Urine Negative (Negative); Leukocyte Esterase Urine Negative (Negative); Nitrate Urine Negative (Negative); Protein Urine Trace (Negative); Specific Gravity, Urine 1.025 (1.005-1.030); Urine Appearance Clear (CLEAR); Urine Color Yellow (Yellow); Urobilinogen Urine 1 mg/dL (Negative); pH Urine 5 (5-7)
[2023-12-19 17:26] LABS: Creatinine Clr Calc Pharmacy 69.7222
[2023-12-19 17:27] LABS: Add Urine Culture? No; Bacteria Urine TRACE /hpf; Hyaline Casts Urine 15-25 /lpf; Mucus Urine 2+ /hpf; Squamous Epithelial Cell Urine 0-4 /hpf (0-5); WBC Urine 0-4 /hpf (0-5)
== END 2023-12-19 18:10 | disposition home or self-care (01) ==
PROVIDERS: Emergency Provider Family Medicine; PCP Nurse Practitioner Family
DX: K80.50 Calculus of bile duct without cholangitis or cholecystitis without obstruction (principal); R10.13 Epigastric pain; M62.08 Separation of muscle (nontraumatic), other site; Z79.01 Long term (current) use of anticoagulants
CPT/HCPCS: 80053; 81001; 83690; 85025; 93005; 99284

== ENCOUNTER 2023-12-23 09:45 | Outpatient (CLI) | payer MEDICAID, SELFPAY ==
--- NOTE | 2023-12-23 10:00 | NM_ITS ---
WS: [id number] NUCLEAR MEDICINE HIDA SCAN WITH GALLBLADDER EJECTION FRACTION HISTORY: abdominal pain COMPARISON: Gallbladder ultrasound 11/19/2023 TECHNIQUE: The patient was intravenously injected with 7.8 mCi of TC99m Mebrofenin. Immediate imaging over the right upper quadrant was followed by 5 minute image and additional images for a total of 60 minutes. Normal uptake of radiotracer throughout the liver. Activity identified in the gallbladder at 90 minutes. Minimal distention of the gallbladder. Activity in the proximal small bowel was seen by 15 minutes. Good washout of the radiotracer from the liver by 60 minutes. The patient then drank 8 ounces of Ensure Plus. Ejection fraction at 90 minutes was 54%. Normal GB ej ection fraction is 35-75%. Post fatty meal symptoms: None. IMPRESSION: 1. No common bile duct obstruction. 2. Delayed filling of the gallbladder. Gallbladder did not fill until 90 minutes post injection. Nor mal ejection fraction after a fatty meal but the gallbladder only moderately distended. 3. Delayed gallbladder filling may be due to hydropic gallbladder from a prolonged fasting state, vi scous bile and chronic cholecystitis. No stones were identified on the recent gallbladder ultrasound.
== END 2023-12-23 09:46 | disposition home or self-care (01) ==
PROVIDERS: PCP Nurse Practitioner Family; Visit Provider Surgery
DX: R10.84 Generalized abdominal pain (principal)
CPT/HCPCS: 78227; A9537

== ENCOUNTER → 2023-12-31 09:51 | Outpatient (BNVA) | payer MEDICAID, SELFPAY | PROVIDERS: PCP Nurse Practitioner Family; Visit Provider Surgery | DX: Z09 Encounter for follow-up examination after completed treatment for conditions other than malignant neoplasm (principal); K80.50 Calculus of bile duct without cholangitis or cholecystitis without obstruction; K21.9 Gastro-esophageal reflux disease without esophagitis | CPT/HCPCS: 99214 ==

== ENCOUNTER 2024-01-19 08:16 | Day surgery (SDC) | payer MEDICAID, SELFPAY ==
[2024-01-19] VITALS (15 sets, daily range): BP systolic 96–119; BP diastolic 56–77; PULSE 60–75; RESP 14–92; TEMP 36.2–36.3; O2SAT 89–95; BMI 31.9
--- NOTE | 2024-01-19 08:29 | W.PM.OPSUD ---
Surgery/Procedure H&P Update DATE OF PROCEDURE: January 19, 2024 DATE H&P PERFORMED: 12/31/23 H&P UPDATE INFORMATION: I have reviewed H&P completed within last 30 days, I have examined patient prior to procedure and No changes to prior documentation PLANNED PROCEDURE: Operation Date: 01/19/24 09:50 Proposed Procedures p Laparoscopic Cholecystectomy(Not Applicable) - Lukas Lind DO
[2024-01-19] MEDS: sodium chloride 0.9% 1,000 ML 30 ML IV (08:53)
--- NOTE | 2024-01-19 08:55 | P.ANESASSM_ITS ---
Pre-Anesthetic Assessment Height/Weight: Height 1.73 m Weight 95.254 kg Temp Pulse Resp BP Pulse Ox O2 Del Method 97.4 F L 60 16 119/77 95 Room Air 01/19/24 08:51 01/19/24 08:51 01/19/24 08:51 01/19/24 08:51 01/19/24 08:51 01/19/24 08:51 Operation Date: 01/19/24 09:50 Proposed Procedures p Laparoscopic Cholecystectomy(Not Applicable) - Lukas Lind DO Familial anesthetic complications: None Was Beta Julianne taken within 24 hours: Yes Was Clonidine taken within 24 hours: N/A Last intake: Intake Last Liquid Date 01/18/24 Last Liquid Time 18:00 Last Solid Date 01/18/24 Last Solid Time 23:30 Social No alcohol and No tobacco Exam alert, oriented x 3, clear to auscultation bilaterally and regular rate & rhythm Airway Mallampati: Class III Dentition: full CV/HEM Hypertension SMSA and renal artery dissection 2 years ago, not stented due to location of the dissections per patient, not expanding - strict BP control GI Gastroesophageal Reflux Disease Metabolic Hyperlipidemia and Morbid Obesity Anesthetic Plan ASA status: 3 Anesthesia: General Risk of > 500 ml blood loss (7ml/kg in children): No Other Pertinent Information Rastafari, declines whole blood, prbcs, platelets, and plasma. Accepts albumin Medications/Allergies Home Medications Medication Instructions Recorded Confirmed Last Taken Type duloxetine 60 mg capsule,delayed 120 mg (2 x 60 mg) PO DAILY #60 12/25/21 01/18/24 01/18/24 Rx release (Cymbalta) caps apixaban 5 mg tablet (Eliquis) 5 mg PO BID 10/13/23 01/18/24 01/14/24 History atorvastatin 40 mg tablet 40 mg PO QPM 10/13/23 01/19/24 01/18/24 History carvedilol 25 mg tablet 25 mg PO BID 10/13/23 01/19/24 01/19/24 History hydralazine 50 mg tablet 50 mg PO QID 10/13/23 01/19/24 01/19/24 History nifedipine 90 mg tablet,extended 30 mg PO DAILY 10/13/23 01/19/24 01/19/24 History release pantoprazole 40 mg tablet,delayed 40 mg PO BID #60 tabs 12/19/23 01/18/24 01/18/24 Rx release (Protonix) Allergies Allergy/AdvReac Type Severity Reaction Status Date / Time No Known Allergies Allergy Verified 01/18/24 10:24 Current Medications Generic Name Dose Route Start Last Admin Trade Name Chrisq PRN Reason Stop Dose Admin Sodium Chloride 1,000 mls @ 30 mls/hr 01/19/24 08:45 01/19/24 08:53 Sodium Chloride 0.9% IV 01/20/24 08:44 30 mls/hr .Q24H JANEL Administration PFSH Anesthesia Medical History Prostate calculus Chronic GERD Major depressive disorder, single episode, mild Generalized anxiety disorder Surgical History H/O esophagogastroduodenoscopy (07/30/20) History of prostate surgery H/O colonoscopy 2020 H/O neck surgery Family History Father Cancer liver Family/Other Cancer uncle-lung Other CAD (coronary artery disease) Denies family history of Anesthesia complication Bleeding disorder Social History Smoking and tobacco/nicotine status: never used tobacco/nicotine Alcohol intake: never Substance/Drug Use: never Household members: spouse Marital status: Current occupational status: unemployed Data Anesthesia Cardiac Studies: Echocardiogram Ultrasound 07/13/20
[2024-01-19] MEDS: ceFAZolin 2,000 MG in sodium chloride 0.9% (plus) 50 ML 100 MG IV (09:02)
[2024-01-19] MEDS: lidocaine-epi 2% PF 1:200,000 20 mL SDV XX (09:19)
--- NOTE | 2024-01-19 09:45 | P.OP_ITS ---
Operative Report Date of procedure: January 19, 2024 Surgeon: Lukas Lind DO Brief History: This very pleasant 58-year-old gentleman who presented my office with abdominal pain. He was diagnosed with biliary colic and chronic cholecystitis. Laparoscopic cholecystectomy was indicated. The risks and benefits of the procedure, especially the fact that cholecystectomy may not alleviate all of his symptoms as he also has an elevated DeMeester score, were explained to the patient. He is understanding the risks and wished to proceed Procedure: Preoperative diagnosis: Biliary colic, chronic cholecystitis Postoperative diagnosis: Same Procedure performed: Laparoscopic cholecystectomy Surgeon: Dr. Lukas Lind DO Estimated blood loss: 5 mL Specimens: Gallbladder to pathology Complications: None apparent Description of procedure: Patient was wheeled into the operative room and placed on the OR table in a supine position. Abdomen was inspected prepped and draped in usual sterile fashion. Time-out was performed and all present were in agreement. A 15 blade scalp was used to make a stab incision in the left upper quadrant and intra- abdominal insufflation was achieved using a Veress needle. After localizing the tissue incisions were made and a 5 millimeter trocar was placed into the umbilicus as well as 2 in the right upper quadrant. A 12 millimeter trocar was placed in the epigastrium. There is a significant amount of adhesed omentum over the gallbladder which was taken down with electrocautery. Gallbladder was grasped and elevated. The triangle of Calot was carefully dissected using blunt dissection and electrocautery until the triangle of Calot clearly identified. The cystic duct was very very small. The cystic artery was actually larger than the cystic duct. The cystic duct was clipped proximally and double clipped distally. The duct was then ligated proximally. The cystic artery was doubly clipped and ligated. The gallbladder was then removed from the liver bed using electrocautery. The gallbladder was removed from the abdomen using an Endo- Catch bag through the epigastric incision. The liver bed was inspected and there was some bleeding from the liver bed which was controlled with electrocautery and pressure safety a piece of Surgicel as the patient is a [employer].. The abdomen was irrigated and suctioned. All ports removed. Skin was washed and dried. Incisions were closed with 4-0 Monocryl in a subcuticular interrupted fashion. Skin glue was applied. Patient tolerated the procedure well.
[2024-01-19] MEDS: fentaNYL 50 mcg/mL INJ 2mL IVP (10:21)
[2024-01-19] MEDS: ondansetron 2 mg/ML SDV 2 mL 4 MG IVP (10:29)
[2024-01-19] MEDS: HYDROcodone-acetaminophen 7.5-325 mg Tablet 1 TAB PO (11:10)
--- NOTE | 2024-01-19 12:00 | ANE.PACU2 ---
Inpatient post-anesthesia follow up: Airway intact: Yes Vital signs: Temperature 97.2 F Pulse Rate 62 Respiratory Rate 16 Blood Pressure 100/60 Pulse Oximetry 91 Oxygen Delivery Me thod Room Air Oxygen Flow Rate 2 Fraction of Inspir ed Oxygen Hydration adequate: Yes Nausea and vomiting: No Pain level: 1 Mental status: Baseline
== END 2024-01-19 12:00 | disposition home or self-care (01) ==
PROVIDERS: PCP Nurse Practitioner Family; Visit Provider Surgery
PROC: 0FT44ZZ Resection of Gallbladder, Percutaneous Endoscopic Approach (ICD-10-PCS; CPT 47562; principal; 2024-01-19 09:50)
DX: K80.10 Calculus of gallbladder with chronic cholecystitis without obstruction (principal); I10 Essential (primary) hypertension; E78.5 Hyperlipidemia, unspecified; E66.01 Morbid (severe) obesity due to excess calories; Z68.31 Body mass index [BMI] 31.0-31.9, adult; K21.9 Gastro-esophageal reflux disease without esophagitis; F41.1 Generalized anxiety disorder
CPT/HCPCS: 47562; 88304; J0171; J0330; J0690; J1100; J2371; J2405; J2704; J3010; J3490; J7030

== ENCOUNTER → 2024-02-01 09:03 | Outpatient (BNVA) | payer MEDICAID, SELFPAY | PROVIDERS: PCP Nurse Practitioner Family; Visit Provider Surgery | DX: K21.9 Gastro-esophageal reflux disease without esophagitis (principal); Z90.49 Acquired absence of other specified parts of digestive tract | CPT/HCPCS: 99024; 99214 ==

== ENCOUNTER 2024-02-26 08:05 | Outpatient (CLI) | payer MEDICAID, SELFPAY ==
--- NOTE | 2024-02-26 08:30 | FL_ITS ---
WS: [id number] Barium swallow and esophagram, 02/26/2024 Clinical Data: Food hanging in throat and distal esophagus for the last 2 years. Comparison: None. Fluoroscopy time: 1min [id number] # of spot films: 5 Findings: The patient swallowed the thick and thin barium, and it flowed through the hypopharynx without hesita tion. No stricture, mass, polyp or erosion was seen. No aspiration or penetration was seen. The patie nt has an anterior cervical disc fusion C4-C7 with no significant impingement onto the posterior hypo pharynx. The barium entered the esophagus and there was normal motility throughout. No stricture, polyp, mass , erosion or ulcer was seen. There was a small hiatal hernia with minimal reflux. Impression Small hiatal hernia with minimal reflux.
== END 2024-02-26 08:06 | disposition home or self-care (01) ==
LOC: RAD 08:05
PROVIDERS: PCP Nurse Practitioner Family; Visit Provider Surgery
DX: K21.9 Gastro-esophageal reflux disease without esophagitis (principal); K44.9 Diaphragmatic hernia without obstruction or gangrene
CPT/HCPCS: 74220

== ENCOUNTER → 2024-02-29 08:23 | Outpatient (BNVA) | payer MEDICAID, SELFPAY | PROVIDERS: PCP Nurse Practitioner Family; Visit Provider Surgery | DX: K59.04 Chronic idiopathic constipation (principal); K21.9 Gastro-esophageal reflux disease without esophagitis; R13.10 Dysphagia, unspecified | CPT/HCPCS: 99214 ==

== ENCOUNTER 2024-03-23 10:06 | Day surgery (SDC) | payer MEDICAID, SELFPAY ==
[2024-03-23 10:20] VITALS: BP 128/79; PULSE 60; RESP 16; TEMP 36.1; O2SAT 95; BMI 30.4
[2024-03-23] MEDS: sodium chloride 0.9% 1,000 ML 30 ML IV (10:27)
--- NOTE | 2024-03-23 10:36 | ANES.PREANE2 ---
Pre-Anesthetic Assessment Height/Weight: Height 1.73 m Weight 90.718 kg Temp Pulse Resp BP Pulse Ox O2 Del Method 97.0 F L 60 16 128/79 95 Room Air 03/23/24 10:20 03/23/24 10:20 03/23/24 10:20 03/23/24 10:20 03/23/24 10:20 03/23/24 10:20 Operation Date: 03/23/24 11:30 Proposed Procedures p EGD Dilation W/ Balloon [id number], K21.9, R13.10(Not Applicable) - Lukas Lind DO Familial anesthetic complications: None Was Beta Julianne taken within 24 hours: N/A Was Clonidine taken within 24 hours: N/A Last intake: Intake Last Liquid Date 03/22/24 Last Liquid Time 21:00 Last Solid Date 03/22/24 Last Solid Time 21:00 Social No alcohol and No tobacco Exam alert, oriented x 3, clear to auscultation bilaterally and regular rate & rhythm Airway Dentition: full and other (missing molars) CV/HEM Hypertension SMAS and renal artery dissection GI Gastroesophageal Reflux Disease Anesthetic Plan ASA status: 3 Anesthesia: MAC Risk of > 500 ml blood loss (7ml/kg in children): No Medications/Allergies Home Medications Medication Instructions Recorded Confirmed Last Taken Type duloxetine 60 mg capsule,delayed 120 mg (2 x 60 mg) PO DAILY #60 12/25/21 03/21/24 03/22/24 Rx release (Cymbalta) caps apixaban 5 mg tablet (Eliquis) 5 mg PO BID 10/13/23 03/21/24 03/20/24 History atorvastatin 40 mg tablet 40 mg PO QPM 10/13/23 03/21/24 03/22/24 History carvedilol 25 mg tablet 25 mg PO BID 10/13/23 03/21/24 03/23/24 08:30 History hydralazine 50 mg tablet 50 mg PO QID 10/13/23 03/21/24 03/23/24 08:30 History nifedipine 90 mg tablet,extended 30 mg PO DAILY 10/13/23 03/21/24 03/23/24 08:30 History release polyethylene glycol 3350 17 17 g PO DAILY #119 grams 01/19/24 03/21/24 03/22/24 Rx gram/dose oral powder (Miralax) pantoprazole 40 mg tablet,delayed 40 mg PO BID 30 days #60 tabs 02/01/24 03/21/24 03/22/24 Rx release (Protonix) linaclotide 145 mcg capsule 145 mcg PO DAILY 30 days #30 caps 02/29/24 03/23/24 3 Weeks Ago Rx (Linzess) ~03/02/24 Allergies Allergy/AdvReac Type Severity Reaction Status Date / Time No Known Allergies Allergy Verified 03/21/24 15:56 Current Medications Generic Name Dose Route Start Last Admin Trade Name Freq PRN Reason Stop Dose Admin Sodium Chloride 1,000 mls @ 30 mls/hr 03/22/24 13:45 03/23/24 10:27 Sodium Chloride 0.9% IV 03/23/24 13:44 30 mls/hr .Q24H JANEL Administration PFSH Anesthesia Medical History Prostate calculus Chronic GERD Major depressive disorder, single episode, mild Generalized anxiety disorder Surgical History Hx laparoscopic cholecystectomy 01/19/24 Dr Lind H/O esophagogastroduodenoscopy (07/30/20) History of prostate surgery H/O colonoscopy 2020 H/O neck surgery Family History Father Cancer liver Family/Other Cancer uncle-lung Other CAD (coronary artery disease) Denies family history of Anesthesia complication Bleeding disorder Social History Smoking and tobacco/nicotine status: never used tobacco/nicotine Alcohol intake: never Substance/Drug Use: never Household members: spouse Marital status: Current occupational status: unemployed Data Anesthesia Cardiac Studies: Echocardiogram Ultrasound 07/13/20
--- NOTE | 2024-03-23 11:00 | W.PM.OPSUD ---
Surgery/Procedure H&P Update DATE OF PROCEDURE: March 23, 2024 DATE H&P PERFORMED: 02/29/24 H&P UPDATE INFORMATION: I have reviewed H&P completed within last 30 days, I have examined patient prior to procedure and No changes to prior documentation PLANNED PROCEDURE: Operation Date: 03/23/24 11:30 Proposed Procedures p EGD Dilation W/ Balloon [id number], K21.9, R13.10(Not Applicable) - Lukas Lind,
[2024-03-23 11:20] VITALS: BP 100/67; PULSE 62; RESP 12; TEMP 36.2; O2SAT 94
[2024-03-23 11:34] VITALS: BP 109/66; PULSE 62; RESP 16; O2SAT 95
--- NOTE | 2024-03-23 11:50 | ANE.PACU2 ---
Inpatient post-anesthesia follow up: Airway intact: Yes Vital signs: Temperature 97.2 F Pulse Rate 62 Respiratory Rate 16 Blood Pressure 109/66 Pulse Oximetry 95 Oxygen Delivery Me thod Room Air Oxygen Flow Rate 3 Fraction of Inspir ed Oxygen Hydration adequate: Yes Nausea and vomiting: No Pain level: 1 Mental status: Baseline
== END 2024-03-23 11:53 | disposition home or self-care (01) ==
PROVIDERS: PCP Nurse Practitioner Family; Visit Provider Surgery
DX: R13.10 Dysphagia, unspecified (principal); K21.9 Gastro-esophageal reflux disease without esophagitis; K22.2 Esophageal obstruction; K29.50 Unspecified chronic gastritis without bleeding; I10 Essential (primary) hypertension; F41.1 Generalized anxiety disorder
CPT/HCPCS: 43239; 43249; 88305; 88342; J2704; J7030

== ENCOUNTER → 2024-04-08 08:23 | Outpatient (BNVA) | payer MEDICAID, SELFPAY | PROVIDERS: PCP Nurse Practitioner Family; Visit Provider Surgery | DX: Z09 Encounter for follow-up examination after completed treatment for conditions other than malignant neoplasm (principal); K21.9 Gastro-esophageal reflux disease without esophagitis; K22.2 Esophageal obstruction; K59.04 Chronic idiopathic constipation | CPT/HCPCS: 99214 ==

== ENCOUNTER 2024-09-14 14:50 | Emergency (ER) | payer MEDICAID, SELFPAY ==
[2024-09-14 15:26] VITALS: BP 130/86; PULSE 72; TEMP 36.6; O2SAT 97; BMI 30.4
[2024-09-14 15:39] LABS: Basophils # 0.1 10^3/uL (0.0-0.1); Basophils % 0.6 %; Eosinophils # 0.2 10^3/uL (0.0-0.8); Eosinophils % 2.7 %; Hematocrit 48.4 % (37-53); Lymphocytes # 2.7 10^3/uL (0.8-4.8); Lymphocytes % 31.7 %; Mean Corpuscular HGB Conc 33.9 g/dL (30-55); Mean Corpuscular Volume 88.6 fl (82-101); Mean Platelet Volume 10.1 fL (7.4-10.4); Monocytes # 0.6 10^3/uL (0.2-0.9); Monocytes % 7.5 %; Neutrophils # 4.81 10^3/uL (1.8-7.7); Neutrophils % 57.4 %; Nucleated Red Blood Cells % 0 %; Platelet Count 265 10^3/cmm (157-399); Red Blood Count 5.46 10^6/uL (3.85-5.65); Red Cell Distribution Width 13.4 % (12.1-15.1); White Blood Count 8.39 10^3/uL (3.29-11.43)
--- NOTE | 2024-09-14 15:46 | CTR_ITS ---
PROCEDURE INFORMATION: Exam: CT Abdomen And Pelvis With Contrast Exam date and time: 09/14/2024 4:10 PM Age: 59 years old Clinical indication: Abdominal pain; Generalized; Prior surgery; Surgery date: 1-6 months; Surgery type: Gb; Additional info: Rlq pain TECHNIQUE: Imaging protocol: Computed tomography of the abdomen and pelvis with contrast. Radiation optimization: All CT scans at this facility use at least one of these dose optimization techniques: automated exposure control; mA and/or kV adjustment per patient size (includes targeted exams where dose is matched to clinical indication); or iterative reconstruction. Contrast material: OMNIPAQUE 350; Contrast volume: 100 ml; Contrast route: INTRAVENOUS (IV); COMPARISON: CT abdomen pelvis w con* [id number] 10/13/2023 4:53 PM RADIATION DOSE METRICS: Total DLP (mGy-cm): 903.15 FINDINGS: Lungs: Lung bases are clear. No pleural effusion. Liver: Normal. No mass. Gallbladder and biliary ducts: The gallbladder has been resected. Pancreas: Normal. No ductal dilation. Spleen: Normal. No splenomegaly. Adrenal glands: Normal. No mass. Kidneys and ureters: A 6 cm cyst involves the right kidney. Stomach and bowel: Multiple diverticula involve the sigmoid colon. There is no sign of diverticulitis. Appendix: The appendix is clearly identified and is unremarkable. Intraperitoneal space: Unremarkable. No free air. No significant fluid collection. Vasculature: Unremarkable. No abdominal aortic aneurysm. Lymph nodes: Unremarkable. No enlarged lymph nodes. Urinary bladder: Unremarkable as visualized. Reproductive: The prostate gland is abnormally enlarged. Bones/joints: Unremarkable. No acute fracture. Soft tissues: Unremarkable. CT/CT abdomen pelvis w con* [id number] IMPRESSION: 1. No acute findings. 2. A benign renal cyst or cysts have been detected. No further follow-up imaging is required. 3. Prostate enlargement 4. Sigmoid diverticulosis COMMENTS: Consistent with the [employer]'s Incidental Findings Committee white paper (J Am Dejuan Radiol 2018): Any incidental renal lesion less than 1 cm or classified as too small to characterize, or any incidental cystic renal lesion characterized as simple-appearing, is likely benign. No follow-up imaging is recommended for these lesions per consensus recommendations based on imaging criteria.
[2024-09-14 15:56] LABS: Alanine Aminotransferase 31 U/L (0-41); Albumin Level 4.3 g/dL (3.5-5.2); Alkaline Phosphatase 104 U/L (40-130); Aspartate Amino Transferase 21 U/L (0-40); Blood Urea Nitrogen 18 mg/dL (6-20); Calcium 9.2 mg/dL (8.5-10.5); Carbon Dioxide 24 mmol/L (22-29); Chloride 104 mmol/L (98-107); Creatinine Clr Calc Pharmacy 99.0456; Globulin 2.7 g/dL (1.3-4.6); Glucose 97 mg/dL (65-115); Lipase 30 U/L (13-60); Osmolality Calculated 292 mOsm/kg (285-295); Sodium 140 mmol/L (136-145); Total Bilirubin 0.3 mg/dL (0.15-1.2)
--- NOTE | 2024-09-14 16:07 | ED_ITS ---
HPI - Abdominal Pain 2 General: Chief Complaint: Abdominal Pain Stated Complaint: right side abd pain Time Seen by Provider: 09/14/24 15:14 Source: patient Mode of arrival: ambulatory Limitations: no limitations History of Present Illness: Patient is a 59-year-old male who presents to the emergency department complaining of right lower quadrant abdominal pain since Thursday. He has never had this pain before. History of cholecystectomy, states he still has his appendix. Is reporting associated nausea. States the pain sometimes radiates into the back, denies history of kidney stones. He is not having any urinary symptoms such as blood in his urine or dysuria at this time. He does not report any specific alleviating or exacerbating factors. No fever, chills, chest pain, shortness of breath, diarrhea, or constipation. He has not taken anything for pain, has not requesting anything at this time. Vital stable. Only pertinent past medical history to report is aortic aneurysm that is being routinely monitored. MD elicited complaint: abdominal pain Onset (ago): day(s) Pain Consistency: constant Location: RLQ Severity: moderate Radiation: back Exacerbating factors: nothing Relieving factors: nothing Associated Symptoms: Reports nausea; Denies bloating, change in stool character, chills, constipation, diarrhea, dysuria, fever(s), hematochezia and vomiting Related Data Home Medications Medication Instructions Recorded Confirmed apixaban 5 mg tablet (Eliquis) 5 mg PO BID 10/13/23 07/06/24 atorvastatin 40 mg tablet 40 mg PO QPM 10/13/23 07/06/24 carvedilol 25 mg tablet 25 mg PO BID 10/13/23 07/06/24 hydralazine 50 mg tablet 50 mg PO QID PRN unknown 10/13/23 07/06/24 nifedipine 90 mg tablet,extended 90 mg PO DAILY 10/13/23 07/06/24 release tamsulosin 0.4 mg capsule 0.4 mg PO DAILY 07/06/24 07/06/24 trazodone 50 mg tablet 50 - 100 mg PO BEDTIME PRN Sleep 07/06/24 07/06/24 Previous Rx's Medication Instructions Recorded duloxetine 60 mg capsule,delayed 120 mg (2 x 60 mg) PO DAILY #60 12/25/21 release (Cymbalta) caps polyethylene glycol 3350 17 17 g PO DAILY #119 grams 01/19/24 gram/dose oral powder (Miralax) pantoprazole 40 mg tablet,delayed 40 mg PO BID 30 days #60 tabs 02/01/24 release (Protonix) cyclobenzaprine 10 mg tablet 10 mg PO TID #15 tabs 07/06/24 Allergies Allergy/AdvReac Type Severity Reaction Status Date / Time No Known Allergies Allergy Verified 09/14/24 15:29 Review of Systems 2 General: Reports: 10 or more systems reviewed and unremarkable except in HPI and below Const: Denies: fever(s), chills, change in appetite, change in weight or diaphoresis ENMT: Denies: throat pain or hoarseness Card: Denies: chest pain, palpitations or lightheadedness Resp: Denies: dyspnea, productive cough or wheezing GI: Reports: abdominal pain and nausea; Denies: vomiting, diarrhea, constipation, bloating, change in stool character or hematochezia : Denies: flank pain, difficulty urinating, dysuria, urinary frequency or urinary urgency Musc: Reports: back pain; Denies: neck pain Skin/Breast: Denies: rash or new lesions Neuro: Denies: headache(s) or dizziness PFSH ED 2 PFSH: Medical History Prostate calculus Chronic GERD Major depressive disorder, single episode, mild Generalized anxiety disorder Surgical History Hx laparoscopic cholecystectomy 01/19/24 Dr Lind H/O esophagogastroduodenoscopy (07/30/20) History of prostate surgery H/O colonoscopy 2020 H/O neck surgery Family History Father Cancer liver Family/Other Cancer uncle-lung Other CAD (coronary artery disease) Denies family history of Anesthesia complication Bleeding disorder Social History Smoking and tobacco/nicotine status: never used tobacco/nicotine Alcohol intake: never Substance/Drug Use: never Household members: spouse Marital status: Current occupational status: unemployed Physical Exam 2 Const: COMMON NORMALS: no acute distress, average body habitus, patient oriented x3, no limitations, healthy appearing, alert and well nourished G ENERAL APPEARANCE: cooperative and comfortable ORIENTATION/CONSCIOUSNESS: Yes awake HENMT: COMMON NORMALS: normocephalic, atraumatic, hearing grossly normal bilaterally, external ears normal, Normal external nose present, Normal nasal mucous membranes and turbinates present and moist oral mucous membranes HEAD & SCALP: normocephalic and atraumatic NOSE: Normal external nose present and Normal nasal mucous membranes and turbinates present EXTERNAL EAR: Yes external ears normal Eye: COMMON NORMALS: Equal, round and reactive pupils present, EOMs intact bilaterally, conjunctivae normal and normal visual merchant by confrontation C ONJUNCTIVA: Yes conjunctivae normal PUPIL: Yes Equal, round and reactive pupils present Neck/C-Spine: COMMON NORMALS: full ROM, supple, no meningeal signs and no JVD Resp: COMMON NORMALS: normal respiratory effort, No retractions, No use of accessory muscles and clear to auscultation bilaterally AUSCULTATION: clear to auscultation bilaterally, no crackles, no rales, no rhonchi and no wheezes Cardio: COMMON NORMALS: no JVD, regular rate, regular rhythm, S1 normal heart sound present, S2 normal heart sound present, No gallops present (Cardio), No clicks present (Cardio), No murmurs present (Cardio), No rub (Cardio) and Peripheral pulses 2+ throughout RATE: regular rate RHYTHM: regular rhythm HEART SOUNDS: S1 normal heart sound present and S2 normal heart sound present PERIPHERAL PULSES: Peripheral pulses 2+ throughout GI: COMMON NORMALS: Normal to inspection, nondistended, normoactive bowel sounds present, Soft to palpation, No hepatosplenomegaly present and no masses AUSCULTATION: Yes normoactive bowel sounds PALPATION: Yes Soft to palpation, Yes Tenderness to palpation present (GI) Details: RLQ, No Guarding due to palpation present (GI), No Rigid due to palpation and Yes No hepatosplenomegaly present RECTAL EXAM: Yes deferred : COMMON NORMALS: Yes no CVA tenderness BLADDER/KIDNEY EXAM: Yes no CVA tenderness Back/Pelvis: COMMON NORMALS: no CVA tenderness Extremity: COMMON NORMALS: normal to inspection and full ROM Neuro: COMMON NORMALS: patient oriented x3, moves all extremities, no focal motor deficits and no sensory deficits noted SENSORIUM/ORIENTATION: Yes alert MENINGEAL SIGNS: Yes no meningeal signs Psych: COMMON NORMALS: mental status grossly normal, cooperative and speech normal SPEECH: Yes normal speech Skin: COMMON NORMALS: no rashes or lesions noted GENERAL SKIN EXAM: no rashes or lesions noted Course 2 Vital Signs: Vital signs: Vital Signs Temperature 97.8 F 09/14/24 15:26 Pulse Rate 72 09/14/24 15:26 Blood Pressure 130/86 09/14/24 15:26 Pulse Oximetry 97 09/14/24 15:26 Oxygen Delivery Me thod Room Air 09/14/24 15:26 MDM - Abdominal Pain Medical Decision Making Patient presenting with right lower quadrant pain over the past 2 days. Physical exam overall unremarkable other than the reproducible tenderness to palpation. His vitals have been stable. Labs completely normal, urinalysis pending at this time though I do not suspect infection. CT not showing any acute findings, specifically his appendix appearing normal. Suspect that this is musculoskeletal in nature versus other benign findings, however nothing emergent and we will have him regular follow-up with primary care. Did tell him that if he continues to have persistence or severe worsening to return to the emergency department for further evaluation. He agrees with this plan at this time will be discharged home. Lab Data 09/14/24 15:31 09/14/24 15:31 Labs/Radiology: Radiology Impressions Abdomen/Pelvis CT 09/14/24 15:46 IMPRESSION: 1. No acute findings. 2. A benign renal cyst or cysts have been detected. No further follow-up imaging is required. 3. Prostate enlargement 4. Sigmoid diverticulosis COMMENTS: Consistent with the [employer] [place] [employer]'s Incidental Findings Committee white paper (J Am Dejuan Radiol 2018): Any incidental renal lesion less than 1 cm or classified as too small to characterize, or any incidental cystic renal lesion characterized as simple-appearing, is likely benign. No follow-up imaging is recommended for these lesions per consensus recommendations based on imaging criteria. Laboratory Results WBC 8.39 10^3/uL (3.29-11.43) 09/14/24 15:31 RBC 5.46 10^6/uL (3.85-5.65) 09/14/24 15:31 Hgb 16.40 g/dL (11.27-16.99) 09/14/24 15:31 Hct 48.4 % (37-53) 09/14/24 15:31 MCV 88.6 fl (82-101) 09/14/24 15:31 MCH 30.0 pg (27-33) 09/14/24 15: MCHC 33.9 g/dL (30-55) 09/14/24 15:31 RDW 13.4 % (12.1-15.1) 09/14/24 15:31 Plt Count 265 10^3/cmm (157-399) 09/14/24 15:31 MPV 10.1 fL (7.4-10.4) 09/14/24 15:31 Neut % (Auto) 57.4 % 09/14/24 15:31 Lymph % (Auto) 31.7 % 09/14/24 15:31 [place] % (Auto) 7.5 % 09/14/24 15:31 Eos % (Auto) 2.7 % 09/14/24 15:31 Baso % (Auto) 0.6 % 09/14/24 15: Neut # (Auto) 4.81 10^3/uL (1.8-7.7) 09/14/24 15:31 Lymph # (Auto) 2.7 10^3/uL (0.8-4.8) 09/14/24 15:31 [place] # (Auto) 0.6 10^3/uL (0.2-0.9) 09/14/24 15:31 Eos # (Auto) 0.2 10^3/uL (0.0-0.8) 09/14/24 15:31 Baso # (Auto) 0.1 10^3/uL (0.0-0.1) 09/14/24 15:31 Nucleated RBC % (auto) 0 % 09/14/24 15:31 Nucleated RBCs # 0.0 /100WBC 09/14/24 15:31 Sodium 140 mmol/L (136-145) 09/14/24 15:31 Potassium 4.0 mmol/L (3.5-5.1) 09/14/24 15:31 Chloride 104 mmol/L (98-107) 09/14/24 15:31 Carbon Dioxide 24 mmol/L (22-29) 09/14/24 15:31 Anion Gap 16.0 (5-19) 09/14/24 15:31 BUN 18 mg/dL (6-20) 09/14/24 15:31 Creatinine 0.9 mg/dL (0.7-1.2) 09/14/24 15:31 GFR Calculation 87.0 mL/min (90-130) L 09/14/24 15:31 Glucose 97 mg/dL (65-115) 09/14/24 15:31 Calculated Osmolality 292 mOsm/kg (285-295) 09/14/24 15:31 Calcium 9.2 mg/dL (8.5-10.5) 09/14/24 15:31 Total Bilirubin 0.3 mg/dL (0.15-1.2) 09/14/24 15:31 AST 21 U/L (0-40) 09/14/24 15:31 ALT 31 U/L (0-41) 09/14/24 15:31 Alkaline Phosphatase 104 U/L (40-130) 09/14/24 15:31 Total Protein 7.0 g/dL (6.6-8.7) 09/14/24 15:31 Albumin 4.3 g/dL (3.5-5.2) 09/14/24 15:31 Globulin 2.7 g/dL (1.3-4.6) 09/14/24 15:31 Lipase 30 U/L (13-60) 09/14/24 15:31 All radiology interpretation(s) finalized by discharge Discharge Plan Discharge Patient Disposition: Home Clinical Impression: Abdominal pain Condition: Stable Prescriptions: No Action duloxetine [Cymbalta] 60 mg capsule,delayed release(DR/EC) 120 mg PO DAILY Qty: 60 2RF pantoprazole [Protonix] 40 mg tablet,delayed release (DR/EC) 40 mg PO BID 30 Days Qty: 60 11RF atorvastatin 40 mg tablet 40 mg PO QPM carvedilol 25 mg tablet 25 mg PO BID nifedipine 90 mg tablet extended release 90 mg PO DAILY hydralazine 50 mg tablet 50 mg PO QID PRN (Reason: unknown) Eliquis 5 mg tablet 5 mg PO BID Hold Instructions: Resume on 03/25/24. polyethylene glycol 3350 [Miralax] 17 gram/dose powder 17 g PO DAILY Qty: 119 0RF cyclobenzaprine 10 mg tablet 10 mg PO TID Qty: 15 0RF trazodone 50 mg tablet 50 - 100 mg PO BEDTIME PRN (Reason: Sleep) tamsulosin 0.4 mg capsule 0.4 mg PO DAILY Discharge Orders: Discharge ED (Routine); Ordered 09/14/24 Ordered By: Sudhir Gomez Referrals: Michelle Rolon FNP [Primary Care Provider] - Patient Instructions: Abdominal Pain (ED) Activity Restrictions/Additional Instructions: You may take ibuprofen or Tylenol for pain. Heat to your stomach if this is musculoskeletal. Please note that if your pain is persisting or is worsening, to return to the emergency department for further evaluation. Your urinalysis is pending at this time. Regular follow-up with primary care. Coding Level of Care Code ED Design Project Manager for Kevin Boswell
[2024-09-14] MEDS: iohexol 350 mg/mL 500 mL Btl (per mL) IV (16:14)
[2024-09-14 16:29] VITALS: BP 156/108; PULSE 72; O2SAT 94
[2024-09-14 17:15] VITALS: BP 131/98; PULSE 66; O2SAT 94
[2024-09-14 18:19] VITALS: BP 126/94; PULSE 70; O2SAT 94
[2024-09-14 18:53] LABS: Bilirubin Urine Negative (Negative); Blood Urine Negative (Negative); Glucose Urine UA Negative (Normal); Ketones Urine Negative (Negative); Leukocyte Esterase Urine Negative (Negative); Nitrate Urine Negative (Negative); Protein Urine Negative (Negative); Urine Appearance Clear (CLEAR); Urine Color Yellow (Yellow)
[2024-09-14 19:06] LABS: Add Urine Microscopic? YES; Bacteria Urine None Seen /hpf; RBC Urine 0-2 /hpf (0-2); Squamous Epithelial Cell Urine 0-5 /hpf (0-5); WBC Urine 0-5 /hpf (0-5)
[2024-09-14 19:22] LABS: Add Urine Culture? No; Specific Gravity, Urine 1.084 (1.005-1.030)
== END 2024-09-14 18:20 | disposition home or self-care (01) ==
PROVIDERS: Emergency Medicine; Emergency Provider Physician Assistant; PCP Nurse Practitioner Family
DX: R10.31 Right lower quadrant pain (principal); Z79.01 Long term (current) use of anticoagulants
CPT/HCPCS: 36415; 74177; 80053; 81001; 83690; 85025; 99285

== ENCOUNTER 2024-12-28 12:23 | Inpatient (IN) | payer MEDICAID, SELFPAY ==
[2024-12-28 12:35] VITALS: BP 155/91; PULSE 92; RESP 17; TEMP 36.8; O2SAT 96; BMI 30.4
--- NOTE | 2024-12-28 12:45 | W.ED.PSYCHS ---
HPI - Psych General: Chief Complaint: Psychiatric Symptoms Stated Complaint: depression, SI Time Seen by Provider: 12/28/24 12:36 Source: patient Mode of arrival: ambulatory Limitations: no limitations History of Present Illness: 59-year-old male states he has battled depression but has been having severe depression over the last few weeks. He states the point where he is having thoughts of suicide states that he just feels like there is no will to live and severely depressed states he needs to get help as he is scared he is in a do something he is very upset and tearful here Associated symptoms: Reports depression and suicidal ideation Related Data Home Medications ?Medication ?Instructions ?Recorded ?Confirmed apixaban 5 mg tablet (Eliquis) 5 mg PO BID 10/13/23 12/28/24 Held on 03/23/24. Instructions: Resume on 03/25/24. atorvastatin 40 mg tablet 40 mg PO QPM 10/13/23 12/28/24 carvedilol 25 mg tablet 25 mg PO BID 10/13/23 12/28/24 hydralazine 50 mg tablet 50 mg PO QID PRN unknown 10/13/23 12/28/24 nifedipine 90 mg tablet,extended 90 mg PO DAILY 10/13/23 12/28/24 release tamsulosin 0.4 mg capsule 0.4 mg PO DAILY 07/06/24 12/28/24 trazodone 50 mg tablet 50 - 100 mg PO BEDTIME PRN Sleep 07/06/24 12/28/24 Previous Rx's ?Medication ?Instructions ?Recorded duloxetine 60 mg capsule,delayed 120 mg (2 x 60 mg) PO DAILY #60 12/25/21 release (Cymbalta) caps pantoprazole 40 mg tablet,delayed 40 mg PO BID 30 days #60 tabs 02/01/24 release (Protonix) Allergies Allergy/AdvReac Type Severity Reaction Status Date / Time No Known Allergies Allergy Verified 09/14/24 15:29 Review of Systems Const: Denies: fever(s), chills, body aches or change in appetite ENMT: Denies: throat pain or dental pain Card: Denies: chest pain Resp: Denies: dyspnea GI: Denies: abdominal pain, nausea, vomiting or diarrhea Musc: Denies: neck pain or back pain Skin/Breast: Denies: rash Neuro: Denies: headache(s) Psych: Reports: depression and suicidal ideation PFSH ED PFSH: Medical History Prostate calculus Chronic GERD Major depressive disorder, single episode, mild Generalized anxiety disorder Surgical History Hx laparoscopic cholecystectomy 01/19/24 Dr Lind H/O esophagogastroduodenoscopy (07/30/20) History of prostate surgery H/O colonoscopy 2020 H/O neck surgery Family History Father Cancer liver Family/Other Cancer uncle-lung Other CAD (coronary artery disease) Denies family history of Anesthesia complication Bleeding disorder Social History Smoking and tobacco/nicotine status: never used tobacco/nicotine Alcohol intake: never Substance/Drug Use: never Household members: spouse Marital status: Current occupational status: unemployed Physical Exam Const: COMMON NORMALS: no acute distress, patient oriented x3 and healthy appearing HENMT: COMMON NORMALS: normocephalic and atraumatic HEAD & SCALP: normocephalic and atraumatic Neck/C-Spine: COMMON NORMALS: full ROM and supple Chest: COMMONS NORMALS: normal inspection of the chest Resp: COMMON NORMALS: normal respiratory effort Cardio: COMMON NORMALS: regular rate, regular rhythm and No murmurs present (Cardio) RATE: regular rate RHYTHM: regular rhythm Extremity: COMMON NORMALS: normal to inspection and full ROM Neuro: COMMON NORMALS: patient oriented x3, moves all extremities and no focal motor deficits Psych: COMMON NORMALS: Normal thought process present and cooperative MOOD & AFFECT: Yes depressed mood THOUGHT PROCESS: Normal thought process present THOUGHT CONTENT: Yes Suicidality present Skin: COMMON NORMALS: no rashes or lesions noted and no wounds GENERAL SKIN EXAM: no rashes or lesions noted Course Vital Signs: Vital signs: Vital Signs Temperature 98.2 F 12/28/24 12:35 Pulse Rate 92 12/28/24 12:35 Respiratory Rate 17 12/28/24 12:35 Blood Pressure 155/91 12/28/24 12:35 Pulse Oximetry 96 12/28/24 12:35 Oxygen Delivery Me thod Room Air 12/28/24 12:35 MDM - Psych Medical Decision Making Patient presents for suicidal ideations patient's medically cleared will admit at this time Medical Records I reviewed the patient's medical records. Lab Data I reviewed the patient's lab results. 12/28/24 13:10 12/28/24 13:10 Laboratory Results WBC 8.79 10^3/uL (3.29-11.43) 12/28/24 13:10 RBC 5.14 10^6/uL (3.85-5.65) 12/28/24 13:10 Hgb 15.50 g/dL (11.27-16.99) 12/28/24 13:10 Hct 45.8 % (37-53) 12/28/24 13:10 MCV 89.1 fl (82-101) 12/28/24 13:10 MCH 30.2 pg (27-33) 12/28/24 13:10 MCHC 33.8 g/dL (30-55) 12/28/24 13:10 RDW 13.2 % (12.1-15.1) 12/28/24 13:10 Plt Count 247 10^3/cmm (157-399) 12/28/24 13:10 MPV 10.2 fL (7.4-10.4) 12/28/24 13:10 Neut % (Auto) 60.9 % 12/28/24 13:10 Lymph % (Auto) 29.1 % 12/28/24 13:10 [place] % (Auto) 7.2 % 12/28/24 13:10 Eos % (Auto) 1.9 % 12/28/24 13:10 Baso % (Auto) 0.6 % 12/28/24 13:10 Neut # (Auto) 5.35 10^3/uL (1.8-7.7) 12/28/24 13:10 Lymph # (Auto) 2.6 10^3/uL (0.8-4.8) 12/28/24 13:10 [place] # (Auto) 0.6 10^3/uL (0.2-0.9) 12/28/24 13:10 Eos # (Auto) 0.2 10^3/uL (0.0-0.8) 12/28/24 13:10 Baso # (Auto) 0.1 10^3/uL (0.0-0.1) 12/28/24 13:10 Nucleated RBC % (auto) 0 % 12/28/24 13:10 Nucleated RBCs # 0.0 /100WBC 12/28/24 13:10 Urine Opiates Screen Negative ng/mL (Negative) 12/28/24 12:55 Ur Barbiturates Screen Negative ng/mL (Negative) 12/28/24 12:55 Ur Phencyclidine Scrn Negative ng/mL (Negative) 12/28/24 12:55 Ur Amphetamines Screen Negative ng/mL (Negative) 12/28/24 12:55 U Benzodiazepines Scrn Negative ng/mL (Negative) 12/28/24 12:55 Urine Cocaine Screen Negative ng/mL (Negative) 12/28/24 12:55 U Marijuana (THC) Screen Negative ng/mL (Negative) 12/28/24 12:55 All radiology interpretation(s) finalized by discharge Discharge Plan Discharge Patient Disposition: Admitted As Inpatient Clinical Impression: Suicidal ideation Condition: Stable Prescriptions: No Action duloxetine [Cymbalta] 60 mg capsule,delayed release(DR/EC) 120 mg PO DAILY Qty: 60 2RF pantoprazole [Protonix] 40 mg tablet,delayed release (DR/EC) 40 mg PO BID 30 Days Qty: 60 11RF atorvastatin 40 mg tablet 40 mg PO QPM carvedilol 25 mg tablet 25 mg PO BID nifedipine 90 mg tablet extended release 90 mg PO DAILY hydralazine 50 mg tablet 50 mg PO QID PRN (Reason: unknown) Eliquis 5 mg tablet 5 mg PO BID trazodone 50 mg tablet 50 - 100 mg PO BEDTIME PRN (Reason: Sleep) tamsulosin 0.4 mg capsule 0.4 mg PO DAILY Referrals: Rolon,Michelle, BUDGET EXAMINER [Primary Care Provider] - Print Language: Nigerien Coding Level of Care Code ED Key Sander for Kevin Boswell
[2024-12-28 13:18] LABS: Basophils # 0.1 10^3/uL (0.0-0.1); Basophils % 0.6 %; Eosinophils # 0.2 10^3/uL (0.0-0.8); Eosinophils % 1.9 %; Hematocrit 45.8 % (37-53); Lymphocytes # 2.6 10^3/uL (0.8-4.8); Lymphocytes % 29.1 %; Mean Corpuscular HGB Conc 33.8 g/dL (30-55); Mean Corpuscular Hemoglobin 30.2 pg (27-33); Mean Corpuscular Volume 89.1 fl (82-101); Mean Platelet Volume 10.2 fL (7.4-10.4); Monocytes # 0.6 10^3/uL (0.2-0.9); Monocytes % 7.2 %; Neutrophils # 5.35 10^3/uL (1.8-7.7); Neutrophils % 60.9 %; Nucleated Red Blood Cells % 0 %; Platelet Count 247 10^3/cmm (157-399); Red Blood Count 5.14 10^6/uL (3.85-5.65); Red Cell Distribution Width 13.2 % (12.1-15.1); White Blood Count 8.79 10^3/uL (3.29-11.43)
[2024-12-28 13:18] LABS: Amphetamines Screen Urine Negative (Negative); Barbiturates Screen Urine Negative (Negative); Benzodiazepines Screen Urine Negative (Negative); Cocaine Screen Urine Negative (Negative); Opiate Screen Urine Negative (Negative); PCP Screen Urine Negative (Negative); THC Screen Urine Negative (Negative)
[2024-12-28 13:35] LABS: Alanine Aminotransferase 33 U/L (0-41); Albumin Level 4.3 g/dL (3.5-5.2); Alkaline Phosphatase 95 U/L (40-130); Anion Gap 14.1 (5-19); Aspartate Amino Transferase 21 U/L (0-40); Blood Urea Nitrogen 17 mg/dL (6-20); Calcium 9.3 mg/dL (8.5-10.5); Carbon Dioxide 22 mmol/L (22-29); Chloride 107 mmol/L (98-107); Creatinine Clr Calc Pharmacy 99.0456; Globulin 2.9 g/dL (1.3-4.6); Glucose 113 mg/dL (65-115); Osmolality Calculated 290 mOsm/kg (285-295); Potassium 4.1 mmol/L (3.5-5.1); Sodium 139 mmol/L (136-145); Total Bilirubin 0.4 mg/dL (0.15-1.2); Total Protein 7.2 g/dL (6.6-8.7)
[2024-12-28 13:52] LABS: Acetaminophen < 5.0 ug/mL (10-30); Alcohol Level < 10 mg/dL (0-10); Salicylate < 0.3 mg/dL (3-10)
[2024-12-28 14:30] VITALS: BP 114/72; PULSE 81; O2SAT 93
[2024-12-28 14:38] VITALS: BP 126/87; PULSE 84; RESP 18; TEMP 36.6; O2SAT 98
[2024-12-28] MEDS: hyDROXYzine 25 mg Capsule 50 MG PO ×2 (15:06→21:30)
--- NOTE | 2024-12-28 15:19 | PC.ADMIT ---
[email or web address] Admission Note: The patient,Wilner Hollingsworth,59 y/o, was given written information regarding hospital policies, unit procedures and contact persons. Patient's smoking status: never smoked. Vital Signs - 8 hr 12/28/24 12:35 12/28/24 14:30 12/28/24 14:42 Temperature 98.2 F Pulse Rate 92 81 Respiratory Rate 17 Blood Pressure 155/91 114/72 Pulse Oximetry 96 93 Oxygen Delivery Method Room Air Room Air ADMITTED FROM [facility] ER VIA WHEELCHAIR, SECURITY AND ER STAFF ON AN INVOLUNTARY 96 HOUR HOLD THAT ENDS ON 01/03/25@1300. PT IS EVASIVE ONLY STATING HE IS HERE DUE TO SEVERE DEPRESSION. REPORTS HE HAS HAD ALOT OF STRESSORS BUT WILL NOT ELABORATE. UDS AND ETOH IS NEGATIVE. STATES HE HAS FREQUENT SUICIDAL THOUGHTS WITH NO PLAN. DENIES HI AND AVH AT THIS TIME. DENIES PAIN. STATE HE DOES HAVE AN ADVANCE DIRECTIVE STATING HE WILL NOT TAKE BLOOD PRODUCTS DUE TO LUTHERAN BELIEF'S. RATES ANXIETY AND DEPRESSION 07/28 AND LIME KILN TENDER TO GIVE VISTARIL 50 MG ORDERED FOR ANXIETY. SKIN ASSESSMENT REVEALS CHOLECYSTECTOMY SCARS TO ABDOMEN. ORIENTATED TO UNIT. ALL QUESTIONS ANSWERED AND SUPPORT VOICED.
[2024-12-28] MEDS: pantoprazole DR 40 mg Tablet PO (17:56)
[2024-12-28] MEDS: apixaban 5 mg Tablet PO (17:56)
[2024-12-28] MEDS: carvedilol 25 mg Tablet PO (17:56)
[2024-12-28 19:59] VITALS: BP 101/64; PULSE 82; RESP 16; TEMP 36.9; O2SAT 93
[2024-12-28] MEDS: trazodone 50 mg Tablet PO (21:30)
[2024-12-29] MEDS: OLANZapine 5 mg ODT PO (00:55)
[2024-12-29] MEDS: ibuprofen 600 mg Tablet PO (00:55)
[2024-12-29 06:00] VITALS: BP 114/79; PULSE 63; RESP 17; TEMP 36.4; O2SAT 94
[2024-12-29] MEDS: carvedilol 25 mg Tablet PO ×2 (07:58→17:24)
[2024-12-29] MEDS: apixaban 5 mg Tablet PO ×2 (07:58→17:24)
[2024-12-29] MEDS: duloxetine 60 mg Capsule 120 MG PO (07:59)
[2024-12-29] MEDS: tamsulosin 0.4 mg Capsule PO (07:59)
[2024-12-29] MEDS: pantoprazole DR 40 mg Tablet PO ×2 (07:59→17:24)
[2024-12-29] MEDS: atorvastatin 40 mg Tablet PO (07:59)
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
[2024-12-29] MEDS: NIFEdipine ER (24 hr) 30 mg Tablet 90 MG PO (09:59)
[2024-12-29 14:00] VITALS: BP 136/91; PULSE 62; RESP 16; TEMP 36.3; O2SAT 97
[2024-12-29 19:55] VITALS: BP 106/71; PULSE 72; RESP 18; TEMP 36.8; O2SAT 94
[2024-12-29] MEDS: quetiapine 25 mg Tablet 50 MG PO (21:07)
[2024-12-29] MEDS: trazodone 50 mg Tablet PO (21:08)
[2024-12-29] MEDS: hyDROXYzine 25 mg Capsule 50 MG PO (21:08)
[2024-12-30 06:00] VITALS: BP 127/73; PULSE 64; RESP 16; TEMP 36.8; O2SAT 95
[2024-12-30] MEDS: atorvastatin 40 mg Tablet PO (08:14)
[2024-12-30] MEDS: pantoprazole DR 40 mg Tablet PO ×2 (08:14→17:22)
[2024-12-30] MEDS: tamsulosin 0.4 mg Capsule PO (08:14)
[2024-12-30] MEDS: apixaban 5 mg Tablet PO ×2 (08:14→17:22)
[2024-12-30] MEDS: duloxetine 60 mg Capsule 120 MG PO (08:14)
[2024-12-30] MEDS: carvedilol 25 mg Tablet PO ×2 (08:14→17:22)
[2024-12-30] MEDS: NIFEdipine ER (24 hr) 30 mg Tablet 90 MG PO (08:14)
[2024-12-30 13:40] VITALS: BP 127/76; PULSE 66; RESP 16; TEMP 37.2; O2SAT 96
--- NOTE | 2024-12-30 14:27 | P.NPUPN_ITS ---
Subjective NPU 2 Subjective: 59-year-old male with PTSD and major dep ressive disorder admitted with suicidal ideation. The patient continued to report significant concerns about his medical issues particularly dealing with pain and spontaneous arterial dissections in various parts of his circulatory system. Patient had reported some difficulties with falling asleep. He had reported feeling better but continued to report significant recurring nightmares and flashbacks regarding his past trauma. He had continued to report feeling depressed but reported normal energy. He reported no change in appetite. He had endorsed no feelings of hopelessness today. He had reported having a good visit with his and described her as being a source of support for him. He had reported that he had not had significant changes in his antidepressant medication regimen in several years. Mental Status Exam 2 MSE Comments: The patient is a friendly and cooperative male who appeared his stated age with fleeting eye contact and normal gait. There was no evidence of any abnormal involuntary motor movements, tics, or tremors appreciated. There was prominent psychomotor retardation appreciated. His speech was monotone in quality with normal rate and prosody. His mood remained depressed. His affect was restricted in range and mood congruent as he appeared tearful at times as well. His thought process was linear logical and goal-directed. His thought content showed no evidence of active homicidal ideation although he reported having suicidal thoughts with no clear plan elicited. There was no evidence of delusional thinking. He did not appear to be responding to internal stimuli. He denied any auditory or visual hallucinations. He was alert and oriented to person, place, time,and situation. His insight was limited. His judgment was poor. His impulse control appeared poor. His recent and remote memory were grossly intact. Vitals/I&O/Wt Last Vital Signs Temp 98.9 F 12/30/24 13:40 Pulse 66 12/30/24 13:40 Resp 16 12/30/24 13:40 BP 127/76 12/30/24 13:40 Pulse Ox 96 12/30/24 13:40 O2 Del Method Room Air 12/30/24 13:40 Data NPU 12/28/24 13:10 12/28/24 13:10 A&P Assessment and plan (1) MDD (major depressive disorder), recurrent severe, without psychosis: (2) PTSD (post-traumatic stress disorder): (3) Generalized anxiety disorder: (4) Suicidal ideation: Plan 59-year-old male with a long history of dysthymia, PTSD, and major depressive disorder currently endorsing suicidal ideation with a history of multiple medication trials. #1.? Engage patient in individual milieu and group therapy. #2?? Restart outpatient medications-Continue Cymbalta 120mg daily and continue Seroquel at 50mg at night to target PTSD symptoms and adjunctive treatment for depression. #3???Add seroquel adjunctively to target depression. #4?? TO-15 minute checks? #5?? Will attempt to gather collateral information PDMP PDMP Reviewed: Not Reviewed Involuntary Hold Information 2 Hold Status: Legal Status: 96 Hour Hold Date/Time Hold Expires: 01/03/2025 @ 1300 Attestations NPU 2 Medical Necessity Statement*: Inpatient hospitalization is medically necessary and deemed to ?be ?the clinically appropriate intervention ?at this time.? We will monitor/initiate medications and make changes as indicated.? The patient will be in the hospital for over 2 midnights.? The patient?s likely length of stay 1-2 days. Coding Level of Care Code Acute Code for [facility] Fwd Diagnoses MDD (major depressive disorder), recurrent severe, without psychosis F33.2 PTSD (post-traumatic stress disorder) F43.10 Generalized anxiety disorder F41.1 Suicidal ideation R45.859
[2024-12-30 19:44] VITALS: BP 116/75; PULSE 65; RESP 18; TEMP 36.7; O2SAT 95
[2024-12-30] MEDS: quetiapine 25 mg Tablet 50 MG PO (21:20)
[2024-12-30] MEDS: docusate sodium 100 mg Capsule PO (21:20)
[2024-12-30] MEDS: trazodone 50 mg Tablet PO (21:20)
[2024-12-30] MEDS: hyDROXYzine 25 mg Capsule 50 MG PO (21:21)
[2024-12-31 06:00] VITALS: BP 107/70; PULSE 58; RESP 17; TEMP 36.7; O2SAT 94
[2024-12-31] MEDS: apixaban 5 mg Tablet PO (07:56)
[2024-12-31] MEDS: duloxetine 60 mg Capsule 120 MG PO (07:56)
[2024-12-31] MEDS: pantoprazole DR 40 mg Tablet PO (07:56)
[2024-12-31] MEDS: carvedilol 25 mg Tablet PO (07:56)
[2024-12-31] MEDS: atorvastatin 40 mg Tablet PO (07:57)
[2024-12-31] MEDS: NIFEdipine ER (24 hr) 30 mg Tablet 90 MG PO (07:57)
[2024-12-31] MEDS: tamsulosin 0.4 mg Capsule PO (07:58)
[2024-12-31 14:00] VITALS: BP 120/78; PULSE 56; RESP 16; TEMP 36.5; O2SAT 97
[2024-12-31 15:30] VITALS: BP 120/78; PULSE 56; RESP 16; TEMP 36.5; O2SAT 97
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
== END 2024-12-31 15:37 | disposition home or self-care (01) | DRG 885 ==
LOC: ER 13:33 → NP 14:23
PROVIDERS: Admitting Provider Psychiatry & Neurology Psychiatry; Emergency Provider Emergency Medicine; PCP Nurse Practitioner Family; Visit Provider Psychiatry & Neurology Psychiatry
DX: F33.2 Major depressive disorder, recurrent severe without psychotic features (principal); R45.851 Suicidal ideations; F43.10 Post-traumatic stress disorder, unspecified; F41.1 Generalized anxiety disorder; F34.1 Dysthymic disorder; Z79.01 Long term (current) use of anticoagulants; Z62.810 Personal history of physical and sexual abuse in childhood
CPT/HCPCS: 36415; 80053; 80306; 80307; 85025; 97150; 97165; 99285; J9999

== ENCOUNTER 2025-03-20 19:26 | Outpatient (CLI) | payer MEDICAID, SELFPAY | END 2025-03-20 19:27 | disposition home or self-care (01) | LOC: SLEEP 19:27 | PROVIDERS: PCP Nurse Practitioner Family; Referring Provider Nurse Practitioner Family; Visit Provider Internal Medicine Pulmonary Disease | DX: G47.33 Obstructive sleep apnea (adult) (pediatric) (principal); G47.36 Sleep related hypoventilation in conditions classified elsewhere | CPT/HCPCS: 95811 ==

== ENCOUNTER 2025-06-21 20:29 | Outpatient (CLI) | payer MEDICAID, SELFPAY | END 2025-06-21 20:30 | disposition home or self-care (01) | LOC: SLEEP 20:29 | PROVIDERS: PCP Nurse Practitioner Family; Visit Provider Internal Medicine Pulmonary Disease | DX: G47.33 Obstructive sleep apnea (adult) (pediatric) (principal) | CPT/HCPCS: 95811 ==